=== PATIENT | female | born 1995 | race African-American/Black ===

== ENCOUNTER → 2017-12-13 13:26 | Outpatient (CLI) | payer OTHER, SELFPAY ==
[2017-12-13 13:53] LABS: Add Manual Diff / Slide Review NO; Basophils Percent Auto 1.4 % (0-2); Eosinophils Percent Auto 10.4 % (2-4); Hematocrit 41.9 % (36-46); Hemoglobin 14.1 g/dL (12.0-16.0); Mean Corpuscular HGB Conc 33.6 % (30-36); Mean Corpuscular Volume 80.3 fL (80-100); Neutrophils Absolute Auto 3300 /uL (3000-5900); Neutrophils Percent Auto 40.2 % (50-75); Platelet Count 260 X10^3/uL (150-400); Red Blood Cell Count 5.22 X10^6/uL (4.0-5.2); Red Cell Distribution Width 13.5 % (11.6-14.8); White Blood Cell Count 8.3 X10^3/uL (4.5-11.0)
[2017-12-13 14:04] LABS: Appearance Urine UA CLEAR; Bilirubin Urine UA NEGATIVE (NEGATIVE); Color Urine UA YELLOW; Glucose Urine UA NEGATIVE (Normal); Ketones Urine UA NEGATIVE (NEGATIVE); Leukocyte Esterase Urine UA NEGATIVE (NEGATIVE); Nitrite Urine UA Negative (Negative); Occult Blood Urine UA NEGATIVE (Negative); Protein Urine UA NEGATIVE (Negative); Urobilinogen Urine UA 0.2 E.U./dL (0.2); pH Urine UA 7.5 (4.5-8.0)
[2017-12-13 15:04] LABS: TSH w/ Reflex to FT4 2.05 uIU/mL (0.47-4.68)
[2017-12-13 16:37] LABS: Hepatitis B Surface Antigen NEGATIVE s/c (NEGATIVE); Rubella Antibody IgG 65.1 IU/mL (>15)
[2017-12-13 16:41] LABS: HIV 1 and 2 Antibody NEGATIVE (NEGATIVE); Hep C Virus Ab w/Reflex Quant NEGATIVE s/c (NEGATIVE)
[2017-12-15 14:40] LABS: HSV 2 IGG AB < 0.90 index (< 0.90)
[2017-12-20 09:12] LABS: Rapid Plasma Reagin NON REACTIVE
== END ==
PROVIDERS: Visit Provider Family Medicine
DX: Z34.01 Encounter for supervision of normal first pregnancy, first trimester (principal); Z3A.01 Less than 8 weeks gestation of pregnancy; E07.9 Disorder of thyroid, unspecified; O99.280 Endocrine, nutritional and metabolic diseases complicating pregnancy, unspecified trimester
CPT/HCPCS: 36415; 80055; 81003; 84443; 86695; 86696; 86703; 86787; 86803; 86850; 86900; 86901; 87086

== ENCOUNTER → 2018-02-07 10:50 | Outpatient (CLI) | payer OTHER, SELFPAY ==
[2018-02-07 12:35] LABS: Thyroid Stimulating Hormone 2.52 uIU/mL (0.47-4.68)
[2018-02-11 10:20] LABS: AFP, Serum 75.9 ng/mL; Cigarette Smoker N; Donated Egg NOT GIVEN; Donor Egg Age NOT GIVEN; Estriol, Free 1.21 ng/mL; Inhibin A, Dimeric 63 pg/mL; Maternal Ethnicity NOT GIVEN; Maternal Weight 139 lbs; Number of Fetuses NOT GIVEN; Previous Pregnancy Down Syndro NOT GIVEN; hCG, MoM 0.28; hCG, Serum 7.2 IU/mL
== END ==
PROVIDERS: Visit Provider Family Medicine
DX: E03.9 Hypothyroidism, unspecified (principal); Z34.02 Encounter for supervision of normal first pregnancy, second trimester; Z3A.18 18 weeks gestation of pregnancy
CPT/HCPCS: 36415; 82105; 82677; 84443; 84702; 86336

== ENCOUNTER → 2018-02-25 07:36 | Outpatient (CLI) | payer OTHER, SELFPAY ==
--- NOTE | 2018-02-25 07:38 | DI.US.S_ITS ---
PROCEDURE: US OB >= 14 WEEKS FETUS INDICATIONS: ANATOMIC SURVEY OUTSIDE/PRIOR DATING DATA: Last menstrual period (LMP): 10/04/17. LMP-based estimated date of delivery (GONSALO): 07/11/18. First dating scan (date and location): 02/25/18. Estimated date of delivery (GONSALO) from first dating scan: 07/12/18. TECHNIQUE: Real-time scanning was performed of the fetus, with image documentation and biometric measurements. Endovaginal scanning: No COMPARISON: [facility], , OB <= 14 WEEKS FETUS, 12/13/2017, 14:56. FINDINGS: General: A single living intrauterine gestation is present. Presentation: Vertex. Placenta: Placental position is posterior, without previa. Amniotic fluid index: 15.9 cm, normal range is 5-24 cm. heart rate: 141 beats per minute. Maternal cervical canal: 3.6 cm long. Normal lower limit is 2.5 cm. biometrics: Biparietal diameter: 21 weeks 1 day Head circumference: 20 weeks 6 days Abdominal circumference: 19 weeks 5 days Femur length: 19 weeks 6 days Estimated gestational age from initial scan: not applicable. Composite gestational age from present scan: 20 weeks 3 days Estimated weight and percentile: 321 g; 60 percentile Measurement variability for biometric dating: +/- 7 days from 14 weeks to 15 weeks 6 days gestation, +/- 10 days from 16 weeks to 21 weeks 6 days gestation, +/- 2 weeks from 22 weeks to 27 weeks 6 days gestation, +/- 3 weeks for 28 weeks gestation or later. weight reference: 4500 g or EFW >90/95% is considered macrosomia or large for gestational age. EFW <10% is small for gestational age. EFW 5% or less is considered intra-uterine growth restriction. Anatomic survey: Neuro: Ventricles are non-dilated at less than 10 mm. Cisterna magna is normal at 3-11 mm. Cerebellum is normal in size and morphology. Nuchal skin fold: Normal at less than 6 mm between 14-21 weeks gestational age. Face: Nose and lips, facial profile are normal. Spine: No evidence for spina bifida. Heart: 4-chambered heart is present, with normal ventricular outflow tracts. Diaphragm: Diaphragm is intact. Stomach: Left-sided stomach is present. Kidneys: No hydronephrosis. Normal is less than 5 mm in 2nd trimester, less than 7 mm in 3rd trimester. Cord: 3-vessel cord has orthotopic insertion. Bladder: Normal in size. Extremities: All 4 extremities identified. Maternal anterior uterine fibroid measuring 2.4 x 1.5 x 2.0 cm. IMPRESSION: 1. Single living IUP with mean composite gestational age of 20 weeks 3 days. 2. face not well visualized otherwise normal anatomy. 3. Maternal anterior uterine fibroid measuring 2.4 cm. Dictated by: Talon Turk [facility] Interpreted: Nadeem Li MD on 02/25/2018 at 10:34 Approved by: Nadeem Li M.D. on 02/25/2018 at 11:08
== END ==
PROVIDERS: Visit Provider Family Medicine
DX: Z36.89 Encounter for other specified antenatal screening (principal); Z3A.20 20 weeks gestation of pregnancy; O34.12 Maternal care for benign tumor of corpus uteri, second trimester; D25.9 Leiomyoma of uterus, unspecified
CPT/HCPCS: 76811

== ENCOUNTER 2018-09-22 06:34 | Day surgery (SDC) | payer OTHER, SELFPAY ==
[2018-09-13 14:40] VITALS: BMI 23.3
[2018-09-22] VITALS (8 sets, daily range): BP systolic 119–144; BP diastolic 85–101; PULSE 69–87; RESP 10–16; TEMP 35.7–36.5; O2SAT 96–100; BMI 23.3
[2018-09-22] MEDS: LACTATED RINGERS 1,000 ML 42 ML IV (07:25)
--- NOTE | 2018-09-22 07:50 | PM.PREOP ---
Pre-operative Note Interval Note History & Physical reviewed/Exam performed by Physician: Yes Changes to H&P: No
--- NOTE | 2018-09-22 07:51 | PM.HP.1 ---
History of Present Illness Date Patient Seen: 09/22/18 Time Patient Seen: 07:51 Chief complaint: [id number] PELVIC Narrative: Patient is a 23-year-old 1 para 1 with granulation tissue at a previous obstetrical laceration site, and an unhealed third-degree laceration Patient History Medical History (Updated 09/13/18 @ 14:50 by Yenny Johnson RN) Third degree perineal laceration during delivery (Acute 07/26/18) Vaginal delivery (Acute 07/26/18) Hypothyroidism (Acute) Social History marital status: household members: spouse and children Smoking Status: Never smoker alcohol intake: never substance use type: does not use Family & Social History Social History: household members spouse,children Tobacco & Substance use: Smoking Status Never smoker alcohol intake never Substance Use Type does not use Meds Home Medications Medication Instructions Recorded Confirmed Type 1 tab PO DAILY 12/13/17 09/22/18 History vitamin,calcium,juahssvi-bqba-gsrzk acid tablet levothyroxine 25 mcg capsule 25 mcg PO DAILY #30 cap 01/20/18 09/22/18 Rx triamcinolone acetonide 0.1 % See Rx Instructions TOP BID #30 03/18/18 09/22/18 Rx topical cream gram fluoxetine 20 mg capsule 20 mg PO DAILY #30 cap 04/06/18 09/22/18 Rx fluticasone 250 mcg-salmeterol 50 1 inhalation INHALATION BID #60 04/06/18 09/22/18 Rx mcg/dose blistr powdr for each inhalation estradiol 0.01% (0.1 mg/gram) 0.3 gram VAG DAILY #42.5 gram 09/07/18 09/22/18 Rx vaginal cream Allergies Allergy/AdvReac Type Severity Reaction Status Date / Time shellfish derived Allergy Severe Lip Verified 09/22/18 07:16 Swelling Exam Vital Signs (past 8 hours): - 09/22/18 07:18 Temperature 97.4 F L Pulse Rate 79 Respiratory Rate 15 Blood Pressure 122/86 Pulse Oximetry 96 Oxygen Delivery Method Room Air Narrative Exam Narrative: HEENT: No thyromegaly, no anterior cervical or supraclavicular lymphadenopathy. Lungs:Clear to auscultation bilaterally, no wheezes. Cardiovascular: Regular rate and rhythm, no murmurs, rubs, or gallops. Abdomen: No scars. No hepatosplenomegaly. No masses palpable. External genitalia: Unrepaired third-degree laceration Vagina: Normal Cervix: Normal Bimanual exam: [ Week size uterus. Mobile.] Rectal: No masses. Assessment & Plan Assessment & Plan narrative: Assessment: 23-year-old 1 para 1 with granulation tissue at a third-degree laceration site Non healed third-degree laceration Plan: Repair of third-degree laceration and excision of granulation tissue The risks, benefits, and alternatives to the procedure were explained to the patient. The risks including bleeding and infection. She understands these risks and agrees to proceed. A full par Q was held and consent form was signed
[2018-09-22] MEDS: CEFAZOLIN 2 GM/100 ML FROZ.PIGGY IV (08:10)
--- NOTE | 2018-09-22 08:16 | SUR.OPER ---
Lithotomy on padded OR bed, head on pillow, arms secured on padded arm boards at <90 degrees abduction. Legs secured in padded yellow fins stirrups.
[2018-09-22] MEDS: fentaNYL 100 MCG/2 ML INJ 50 MCG IV ×2 (09:05→09:13)
--- NOTE | 2018-09-22 09:38 | SUR.PHASEII ---
PT UP TO BATHROOM WITH ASSISTANCE, GAIT STEADY, PT ABLE TO VOID, CLEAN MICHAEL PAD AND PANITES GIVEN FOR SMALL AMT BLOODY DRAINAGE.
[2018-09-22] MEDS: OXYCODONE/ACETAMINOPHEN 5/325 TABLET 1 TAB PO ×2 (09:42→10:00)
--- NOTE | 2018-09-22 09:43 | SUR.PHASEII ---
PT TOLERATING CRACKERS AND JUICE
--- NOTE | 2018-09-24 00:59 | PM.GYNOP.1 ---
Operative Date/Time/Diagnoses Date of procedure: 09/23/18 Time of procedure: 08:45 Pre-op diagnosis: Granulation tissue at obstetrical laceration site Unhealed third-degree laceration repair Post-op diagnosis: same Procedure: Procedures Operation Date: 09/22/18 07:45 Actual Procedures Side Surgeon p Revision 3rd Degree Laceration Daisy Mason MD Indications: Granulation tissue at obstetrical laceration site Unhealed third-degree laceration repair Surgeon: Daisy Mason Anesthesia Type: General (LMA) Operative Notes Findings: A 0.5 x 0.5 cm hole between the vagina and the perineum Granulation tissue along the perineal body Granulation tissue in the vagina Closure Type: primary Specimen(s): none Estimated blood loss (mL): 10 Blood products transfused: none Procedure in detail: After informed consent was obtained, the patient was taken to the operating room where she was placed in the dorsal supine position. After adequate LMA general anesthesia was achieved, she was placed in the dorsal lithotomy position, and prepped and draped in the usual sterile fashion. A time-out was performed. 10 cc of 0.5% Marcaine with epinephrine were injected along the perineal body and on the vaginal mucosa. The granulation tissue was excised using a # 10 blade on the vaginal mucosa and extending down the perineal body. The fistulous tract between the vaginal mucosa and perineal body were excised as well. Two 0 Vicryl was used to reapproximate the vaginal mucosa to the mucocutaneous junction. Two 0 Vicryl was used to reapproximate the perineal body with deep sutures. Three 0 Vicryl was used to close the skin in a subcuticular fashion. Three 0 chromic approximately 3 sutures were used for retention sutures on the skin. Hemostasis was achieved. A rectal exam was performed and there were no sutures or fistulas into the rectum. Sponge, lap, and instrument counts were correct x2. The patient tolerated the procedure well, and was taken to PACU in stable condition. Complications: none Post-operative Condition: stable Disposition: PACU Plan for aftercare: Home after recovery
== END 2018-09-22 10:24 | disposition home or self-care (01) ==
PROVIDERS: Visit Provider Obstetrics & Gynecology
PROC: (CPT 59300; principal; 2018-09-22 07:45)
DX: O70.20 Third degree perineal laceration during delivery, unspecified (principal); Z87.59 Personal history of other complications of pregnancy, childbirth and the puerperium; E03.9 Hypothyroidism, unspecified
CPT/HCPCS: 11420; 12041 ×2; J0690; J1885; J2405; J2704; J3010

== ENCOUNTER → 2019-01-20 10:50 | Outpatient (CLI) | payer OTHER, SELFPAY ==
--- NOTE | 2019-01-20 10:52 | DI.RAD.S_ITS ---
PROCEDURE: XR HAND RT MIN 3V INDICATIONS: Morning stiffness, joints of both hands TECHNIQUE: 3 views of the hand(s) acquired. COMPARISON: [facility], CR, XR HAND LT MIN 3V, 01/20/2019, 11:21. FINDINGS: Bones: No fractures or dislocations. Carpal bones are normally aligned. No suspicious bony lesions. No erosions. Soft tissues: No suspicious soft tissue calcifications. IMPRESSION: No visualized arthritic change. Dictated by: Marjorie Valle M.D. on 01/20/2019 at 16:11 Approved by: Marjorie Valle M.D. on 01/20/2019 at 16:11
--- NOTE | 2019-01-20 10:52 | DI.RAD.S_ITS ---
PROCEDURE: XR HAND LT MIN 3V INDICATIONS: Morning stiffness, joints of both hands TECHNIQUE: 3 views of the hand(s) acquired. COMPARISON: [facility], CR, XR HAND RT MIN 3V, 01/20/2019, 11:21. FINDINGS: Bones: No fractures or dislocations. Carpal bones are normally aligned. No suspicious bony lesions. No visualized joint space narrowing. No erosions. Soft tissues: No suspicious soft tissue calcifications. IMPRESSION: No visualized arthritic change. Dictated by: Marjorie Valle M.D. on 01/20/2019 at 16:11 Approved by: Marjorie Valle M.D. on 01/20/2019 at 16:11
[2019-01-20 12:37] LABS: Hematocrit 43.8 % (36-46); Hemoglobin 14.3 g/dL (12.0-16.0); Mean Corpuscular HGB Conc 32.5 % (30-36); Mean Corpuscular Hemoglobin 26.8 PG (26-34); Mean Corpuscular Volume 82.4 fL (80-100); Platelet Count 280 X10^3/uL (150-400); Red Blood Cell Count 5.32 X10^6/uL (4.0-5.2); Red Cell Distribution Width 13.2 % (11.6-14.8)
[2019-01-20 13:07] LABS: Erythrocyte Sedimentation Rate 6 MM/HR (0-20)
[2019-01-20 13:31] LABS: Alanine Aminotransferase 24 IU/L (<35); Albumin 4.8 g/dL (3.5-5.0); Albumin Globulin Ratio 1.6 (1.0-2.8); Alkaline Phosphatase 150 U/L (38-126); Aspartate Aminotransferase 25 IU/L (14-36); BUN Creatinine Ratio 11.4 (6-22); Bilirubin Total 0.4 mg/dL (0.2-1.3); Blood Urea Nitrogen 8 mg/dL (7-17); Calcium 10.4 mg/dL (8.4-10.2); Carbon Dioxide 28 mmol/L (22-32); Chloride 100 mmol/L (98-107); Estimated Glomerular Filt Rate > 60.0 mL/min (>60); Glucose 74 mg/dL (70-100); HEMOLYSIS < 15 (0-50); Potassium 4.2 mmol/L (3.4-5.1); Sodium 140 mmol/L (137-145); Total Protein 7.8 g/dL (6.3-8.2)
[2019-01-20 14:00] LABS: Thyroid Stimulating Hormone 1.44 uIU/mL (0.47-4.68)
== END ==
PROVIDERS: Visit Provider Nurse Practitioner Family
DX: Z00.00 Encounter for general adult medical examination without abnormal findings (principal); M25.641 Stiffness of right hand, not elsewhere classified; M25.642 Stiffness of left hand, not elsewhere classified; E03.9 Hypothyroidism, unspecified
CPT/HCPCS: 36415; 73130; 80053; 84443; 85027; 85651

== ENCOUNTER → 2019-01-27 09:15 | Outpatient (CLI) | payer OTHER, SELFPAY ==
[2019-02-03 07:10] LABS: Calcium 9.8 mg/dL (8.6-10.2); Parathyroid Hormone, Intact 34 pg/mL (14-64)
== END ==
PROVIDERS: Visit Provider Nurse Practitioner Family
DX: E83.52 Hypercalcemia (principal)
CPT/HCPCS: 36415; 83970

== ENCOUNTER → 2019-12-01 09:29 | Outpatient (CLI) | payer OTHER, SELFPAY ==
[2019-12-01 10:19] LABS: Hematocrit 41.2 % (36-46); Hemoglobin 13.6 g/dL (12.0-16.0); Mean Corpuscular HGB Conc 33.1 % (30-36); Mean Corpuscular Hemoglobin 27.1 PG (26-34); Mean Corpuscular Volume 81.9 fL (80-100); Platelet Count 224 X10^3/uL (150-400); Red Blood Cell Count 5.03 X10^6/uL (4.0-5.2); Red Cell Distribution Width 12.8 % (11.6-14.8); White Blood Cell Count 6.5 X10^3/uL (4.5-11.0)
[2019-12-01 10:51] LABS: Alanine Aminotransferase 16 IU/L (<35); Albumin Globulin Ratio 1.3 (1.0-2.8); Alkaline Phosphatase 138 U/L (38-126); Aspartate Aminotransferase 20 IU/L (14-36); BUN Creatinine Ratio 12.9 (6-22); Bilirubin Total 0.2 mg/dL (0.2-1.3); Blood Urea Nitrogen 9 mg/dL (7-17); Calcium 9.4 mg/dL (8.4-10.2); Carbon Dioxide 26 mmol/L (22-32); Chloride 104 mmol/L (98-107); Estimated Glomerular Filt Rate > 60.0 mL/min (>60); Globulin 3.1 g/dL (1.7-4.1); Glucose 80 mg/dL (70-100); HEMOLYSIS < 15 (0-50); Potassium 4.6 mmol/L (3.4-5.1); Sodium 138 mmol/L (137-145); Total Protein 7.1 g/dL (6.3-8.2)
[2019-12-01 11:19] LABS: Thyroid Stimulating Hormone 1.87 uIU/mL (0.47-4.68)
== END ==
PROVIDERS: PCP Nurse Practitioner Family; Referring Provider Nurse Practitioner Family; Visit Provider Nurse Practitioner Family
DX: Z00.00 Encounter for general adult medical examination without abnormal findings (principal); E03.9 Hypothyroidism, unspecified
CPT/HCPCS: 36415; 80053; 84443; 85027

== ENCOUNTER 2019-12-14 17:26 | Emergency (ER) | payer OTHER, SELFPAY ==
[2019-12-14 17:30] VITALS: BP 118/67; PULSE 88; RESP 16; TEMP 36.8; O2SAT 100; BMI 25.7
--- NOTE | 2019-12-14 18:19 | DI.RAD.S_ITS ---
PROCEDURE: XR CHEST 2V INDICATIONS: short of breath TECHNIQUE: 2 views of the chest were acquired. COMPARISON: None. FINDINGS: Surgical changes and devices: None. Lungs and pleura: Lungs are clear. No pleural effusions or pneumothorax. Mediastinum: Mediastinal contours are normal. Heart size is normal. Bones and chest wall: No suspicious bony abnormalities. Soft tissues appear unremarkable. IMPRESSION: No acute cardiopulmonary pathology. Dictated by: Nadeem Li M.D. on 12/14/2019 at 17:43 Approved by: Nadeem Li M.D. on 12/14/2019 at 17:43
[2019-12-14 19:28] LABS: COVID19 -Nasal RAPID Negative (Negative)
[2019-12-14] MEDS: SODIUM CHLORIDE 0.9% 1,000 ML 1000 ML IV (19:46)
[2019-12-14] MEDS: KETOROLAC 60 MG/2 ML VIAL 30 MG IV (19:46)
[2019-12-14] MEDS: ONDANSETRON 4 MG/2 ML INJ IV (19:46)
[2019-12-14 19:50] LABS: Add Manual Diff / Slide Review NO; Basophils Absolute Auto 100 /uL (0-100); Basophils Percent Auto 0.7 % (0-2); Eosinophils Absolute Auto 400 /uL (0-450); Eosinophils Percent Auto 4.5 % (2-4); Hematocrit 42.2 % (36-46); Hemoglobin 14.1 g/dL (12.0-16.0); Lymphocytes Absolute Auto 4400 /uL (1100-4500); Lymphocytes Percent Auto 52.4 % (25-40); Mean Corpuscular HGB Conc 33.3 % (30-36); Mean Corpuscular Hemoglobin 27.3 PG (26-34); Monocytes Absolute Auto 500 /uL (0-900); Monocytes Percent Auto 6.5 % (3-14); Neutrophils Absolute Auto 3000 /uL (1500-7000); Neutrophils Percent Auto 35.9 % (50-75); Platelet Count 223 X10^3/uL (150-400); Red Blood Cell Count 5.15 X10^6/uL (4.0-5.2); Red Cell Distribution Width 12.7 % (11.6-14.8); White Blood Cell Count 8.4 X10^3/uL (4.5-11.0)
[2019-12-14 20:09] VITALS: PULSE 86; RESP 18; O2SAT 99
[2019-12-14 20:09] LABS: Lactate (Lactic Acid) 1.2 mmol/L (0.7-2.1)
[2019-12-14] MEDS: methylPREDNISolone 125 MG/2 ML VIAL IV (20:09)
[2019-12-14 20:10] LABS: Alanine Aminotransferase 18 IU/L (<35); Albumin Globulin Ratio 1.3 (1.0-2.8); Alkaline Phosphatase 146 U/L (38-126); Aspartate Aminotransferase 26 IU/L (14-36); BUN Creatinine Ratio 14.7 (6-22); Bilirubin Total 0.2 mg/dL (0.2-1.3); Blood Urea Nitrogen 10 mg/dL (7-17); Carbon Dioxide 26 mmol/L (22-32); Chloride 103 mmol/L (98-107); Estimated Glomerular Filt Rate > 60.0 mL/min (>60); Globulin 3.1 g/dL (1.7-4.1); Glucose 85 mg/dL (70-100); HEMOLYSIS 42 (0-50); Potassium 3.9 mmol/L (3.4-5.1); Sodium 136 mmol/L (137-145); Total Protein 7.1 g/dL (6.3-8.2)
[2019-12-14] MEDS: ALBUTEROL 2.5 MG/3 ML NEB (ADULT) 5 MG INH (20:10)
[2019-12-14] MEDS: ALBUTEROL/IPRATROPIUM 3 ML AMPUL INH ×4 (20:11→21:12)
[2019-12-14 20:24] LABS: Procalcitonin < 0.05 ng/mL (<0.5)
[2019-12-14 21:22] VITALS: BP 117/74; PULSE 102; RESP 18; O2SAT 99
--- NOTE | 2019-12-14 21:22 | ED_ITS ---
HPI - SOB/Dyspnea <WENDIE Lee - Last Filed: 12/14/19 21:27> General Chief Complaint: Shortness of Breath/Dyspnea Stated Complaint: SHORT OF BREATH, HEADACHE Time Seen by Provider: 12/14/19 18:57 Source: patient Mode of arrival: Ambulatory Limitations: no limitations History of Present Illness HPI Narrative: The patient is a 24-year-old female nonsmoker with history of asthma who presents with a chief complaint of shortness of breath that started earlier today. She has tried her inhaler, but does not use a spacer. She is out of ?nebulizer medicine,though notes that she does have a nebulizer machine at home. She denies any fevers, abdominal pain nausea vomiting or diarrhea. She does complain of headache. She denies possibility of . She denies any productive cough, states as though she feels like her chest is very ?tight.She states she using her preventative medication as instructed. Related Data Home Medications Medication Instructions Recorded Confirmed albuterol sulfate 90 mcg/actuation 2 puff INHALATION Q4-6H PRN 11/29/19 11/29/19 aerosol inhaler Previous Rx's Medication Instructions Recorded fluticasone 250 mcg-salmeterol 50 1 inhalation INHALATION BID #60 01/17/19 mcg/dose blistr powdr for each inhalation levothyroxine 25 mcg tablet 25 mcg PO DAILY #90 tab 07/07/19 paroxetine HCl 10 mg tablet 10 mg PO DAILY #60 tab 11/29/19 albuterol sulfate 2 puff INHALATION Q4-6H PRN #18 12/14/19 gram ipratropium-albuterol 3 ml INHALATION Q4-6H PRN #15 ml 12/14/19 prednisone 40 mg PO DAILY #10 tab 12/14/19 Allergies Allergy/AdvReac Type Severity Reaction Status Date / Time shellfish derived Allergy Severe Lip Verified 12/14/19 17:45 Swelling oxycodone AdvReac Mild Rash/Itchin Verified 12/14/19 17:45 g Review of Systems <WENDIE Lee - Last Filed: 12/14/19 21:27> Review of Systems Narrative: GENERAL: Denies chills, fatigue, malaise, fever, sweats. HEENT: Denies sinus pain, ear pain, sore throat, difficulty swallowing, dizziness. RESPIRATORY: See HPI CARDIOVASCULAR: Denies chest pain, palpitations, orthopnea, edema, GASTROINTESTINAL: Denies nausea, vomiting, abdominal pain, diarrhea, constipation, melena. : Denies dysuria, frequency, incontinence, hematuria, urinary retention. MUSCULOSKELETAL: denies weakness, joint pain, or bony pain SKIN: Denies rash, skin lesions, or other NEUROLOGIC: See HPI PSYCHIATRIC: No concerning psychosocial issues. 12 point review of systems is negative except for those stated above Patient History <WENDIE Lee - Last Filed: 12/14/19 21:27> Medical History Asthma (Acute) Elevated alkaline phosphatase level (Acute) Hypothyroidism (Acute 2011) Pelvic floor dysfunction in female (Acute) Pelvic floor tension (Acute) Third degree perineal laceration during delivery (Acute 07/26/18) Vaginal delivery (Acute 07/26/18) Surgical History Status post surgery (Resolved) Social History marital status: household members: spouse and children Smoking Status: Never smoker second hand exposure: No alcohol intake: never substance use type: does not use Smoking Status: Never smoker alcohol intake frequency: holidays/special occasions only Substance Use Type: does not use Exam <WENDIE Lee - Last Filed: 12/14/19 21:27> Narrative Exam Narrative: GENERAL: This is a well-nourished, well-developed patient, no acute distress HEAD: Atraumatic. Normocephalic. No temporal or scalp tenderness. EYES: Pupils equal round and reactive. Extraocular motions intact. No scleral icterus. No injection or drainage. ENT: Nose without bleeding, purulent drainage or septal hematoma. Throat without erythema, tonsillar hypertrophy or exudate. Uvula midline. Airway patent. NECK: Trachea midline. No JVD or lymphadenopathy. Supple, nontender, no meni ngeal signs. CARDIOVASCULAR: Regular rate and rhythm RESPIRATORY: Diminished bilaterally to auscultation. Breath sounds equal bilaterally. No wheezes, rales, or rhonchi. No increased respiratory effort. Speaking full sentences. No accessory muscle use., laying back on stretcher GASTROINTESTINAL: Abdomen soft, non-tender, nondistended. No hepato- splenomegaly, or palpable masses. No guarding. EXTREMITIES: No clubbing, cyanosis, or edema. No joint tenderness, effusion, or edema noted. BACK: Nontender without deformity or crepitance. No flank tenderness. NEURO: AOx3. Stable gait. Using all extremities equally. SKIN: No rash or erythema on visible skin. Initial Vital Signs Initial Vital Signs: Vital Signs Temperature 98.2 F 12/14/19 17:30 Pulse Rate 88 12/14/19 17:30 Respiratory Rate 16 12/14/19 17:30 Blood Pressure 118/67 12/14/19 17:30 Pulse Oximetry 100 12/14/19 17:30 <Javon Morris DO - Last Filed: 12/15/19 01:16> Initial Vital Signs Initial Vital Signs: Vital Signs Temperature 98.2 F 12/14/19 17:30 Pulse Rate 88 12/14/19 17:30 Respiratory Rate 16 12/14/19 17:30 Blood Pressure 118/67 12/14/19 17:30 Pulse Oximetry 100 12/14/19 17:30 Scores <WENDIE Lee - Last Filed: 12/14/19 21:27> GCS [place] coma scale eye opening: Spontaneous Valeriano coma scale verbal response: Orientated [place] coma scale motor response: Obey commands [place] coma scale total score: 15 PERC Score Age greater than or equal to 50 years: No Heart rate greater than or equal to 100 bpm: No Room Air O2 Sat less than 95%: No Unilateral leg swelling: No Recent trauma or surgery: No Hemoptysis: No Prior PE or DVT: No Hormone Use: No Total PERC Score: 0 Wells' Criteria for PE Clinical signs and symptoms of DVT: No PE is #1 Dx or equally likely: No Heart rate > 100: No Immobilization at least 3 days or surg in previous 4 weeks: No History of PE or DVT: No Hemoptysis: No Malignancy w/Treatment within 6 months or palliative: No Wells' PE Score total: 0 Course <WENDIE Lee - Last Filed: 12/14/19 21:27> Orders Ordered: ED Orders 12/14/19 18:19 XR chest 2V Stat EKG-12 Lead Stat 12/14/19 19:02 COVID19 -ED/INPAT/OR/L&D Stat 12/14/19 19:38 RT Consult Eval and Treat NOW 12/14/19 19:40 Complete Blood Count AUTO DIFF Stat Comprehensive Metabolic Panel Stat Lactate (Lactic Acid) Stat Procalcitonin Stat Discontinued Medications Albuterol (Ventolin) 5 mg INH NOW ONE Stop: 12/14/19 20:08 Last Admin: 12/14/19 20:10 Dose: 5 mg Documented by: ABRAHAM Albuterol/Ipratropium (Duoneb) 3 ml INH NOW ONE Stop: 12/14/19 20:09 Last Admin: 12/14/19 20:11 Dose: 3 ml Documented by: ABRAHAM Albuterol/Ipratropium (Duoneb) 3 ml INH NOW ONE Stop: 12/14/19 21:04 Last Admin: 12/14/19 21:11 Dose: 3 ml Documented by: PAVITHRA Albuterol/Ipratropium (Duoneb) 3 ml INH NOW ONE Stop: 12/14/19 21:05 Last Admin: 12/14/19 21:11 Dose: 3 ml Documented by: PAVITHRA Albuterol/Ipratropium (Duoneb) 3 ml INH NOW ONE Stop: 12/14/19 21:05 Last Admin: 12/14/19 21:12 Dose: 3 ml Documented by: PAVITHRA Sodium Chloride (Normal Saline 0.9%) 1,000 mls @ 1,000 mls/hr IV BOLUS ONE Stop: 12/14/19 20:21 Last Infusion: 12/14/19 20:46 Dose: 0 mls/hr Documented by: Admin: 12/14/19 19:46 Dose: 1,000 mls/hr Documented by: PAVITHRA Ketorolac Tromethamine (Toradol) 30 mg IV NOW ONE Stop: 12/14/19 19:23 Last Admin: 12/14/19 19:46 Dose: 30 mg Documented by: PAVITHRA Methylprednisolone (Solu-Medrol 125 Mg Vial) 125 mg IV NOW ONE Stop: 12/14/19 20:06 Last Admin: 12/14/19 20:09 Dose: 125 mg Documented by: PAVITHRA Ondansetron HCl (Zofran) 4 mg IV NOW ONE Stop: 12/14/19 19:23 Last Admin: 12/14/19 19:46 Dose: 4 mg Documented by: PAVITHRA Vital Signs Vital signs: Vital Signs - 8 hr 12/14/19 17:30 12/14/19 20:09 12/14/19 21:22 Temperature 98.2 F Pulse Rate 88 86 102 H Respiratory Rate 16 18 18 Blood Pressure 118/67 117/74 Pulse Oximetry 100 99 99 <Javon Morris, - Last Filed: 12/15/19 01:16> Orders Ordered: ED Orders 12/14/19 18:19 XR chest 2V Stat EKG-12 Lead Stat 12/14/19 19:02 COVID19 -ED/INPAT/OR/L&D Stat 12/14/19 19:38 RT Consult Eval and Treat NOW 12/14/19 19:40 Complete Blood Count AUTO DIFF Stat Comprehensive Metabolic Panel Stat Lactate (Lactic Acid) Stat Procalcitonin Stat Discontinued Medications Albuterol (Ventolin) 5 mg INH NOW ONE Stop: 12/14/19 20:08 Last Admin: 12/14/19 20:10 Dose: 5 mg Documented by: ABRAHAM Albuterol/Ipratropium (Duoneb) 3 ml INH NOW ONE Stop: 12/14/19 20:09 Last Admin: 12/14/19 20:11 Dose: 3 ml Documented by: ABRAHAM Albuterol/Ipratropium (Duoneb) 3 ml INH NOW ONE Stop: 12/14/19 21:04 Last Admin: 12/14/19 21:11 Dose: 3 ml Documented by: PAVITHRA Albuterol/Ipratropium (Duoneb) 3 ml INH NOW ONE Stop: 12/14/19 21:05 Last Admin: 12/14/19 21:11 Dose: 3 ml Documented by: PAVITHRA Albuterol/Ipratropium (Duoneb) 3 ml INH NOW ONE Stop: 12/14/19 21:05 Last Admin: 12/14/19 21:12 Dose: 3 ml Documented by: PAVITHRA Sodium Chloride (Normal Saline 0.9%) 1,000 mls @ 1,000 mls/hr IV BOLUS ONE Stop: 12/14/19 20:21 Last Infusion: 12/14/19 20:46 Dose: 0 mls/hr Documented by: Admin: 12/14/19 19:46 Dose: 1,000 mls/hr Documented by: PAVITHRA Ketorolac Tromethamine (Toradol) 30 mg IV NOW ONE Stop: 12/14/19 19:23 Last Admin: 12/14/19 19:46 Dose: 30 mg Documented by: PAVITHRA Methylprednisolone (Solu-Medrol 125 Mg Vial) 125 mg IV NOW ONE Stop: 12/14/19 20:06 Last Admin: 12/14/19 20:09 Dose: 125 mg Documented by: PAVITHRA Ondansetron HCl (Zofran) 4 mg IV NOW ONE Stop: 12/14/19 19:23 Last Admin: 12/14/19 19:46 Dose: 4 mg Documented by: PAVITHRA Vital Signs Vital signs: Vital Signs - 8 hr 12/14/19 17:30 12/14/19 20:09 12/14/19 21:22 Temperature 98.2 F Pulse Rate 88 86 102 H Respiratory Rate 16 18 18 Blood Pressure 118/67 117/74 Pulse Oximetry 100 99 99 MDM - SOB/Dyspnea <WENDIE Lee - Last Filed: 12/14/19 21:27> Lab Data Attestation: I reviewed the patient's lab results. Result diagrams: 12/14/19 19:40 12/14/19 19:40 Labs: Lab Results 12/14/19 12/14/19 12/14/19 Range/Units 19:02 19:40 19:40 WBC 8.4 (4.5-11.0) X10^3/uL RBC 5.15 (4.0-5.2) X10^6/uL Hgb 14.1 (12.0-16.0) g/dL Hct 42.2 (36-46) % MCV 82.0 (80-100) fL MCH 27.3 (26-34) PG MCHC 33.3 (30-36) % RDW 12.7 (11.6-14.8) % Plt Count 223 (150-400) X10^3/uL Neut % (Auto) 35.9 L (50-75) % Lymph % (Auto) 52.4 H (25-40) % [place] % (Auto) 6.5 (3-14) % Eos % (Auto) 4.5 H (2-4) % Baso % (Auto) 0.7 (0-2) % Neut # (Auto) 3000 (3812-6066) /uL Lymph # (Auto) 4400 (1520-9975) /uL [place] # (Auto) 500 (0-900) /uL Eos # (Auto) 400 (0-450) /uL Baso # (Auto) 100 (0-100) /uL Sodium (137-145) mmol/L Potassium (3.4-5.1) mmol/L Chloride (98-107) mmol/L Carbon Dioxide (22-32) mmol/L BUN (7-17) mg/dL Creatinine (0.52-1.04) mg/dL Estimated GFR (>60) mL/min BUN/Creatinine Ratio (6-22) Glucose (70-100) mg/dL Lactate (0.7-2.1) mmol/L Calcium (8.4-10.2) mg/dL Total Bilirubin (0.2-1.3) mg/dL AST (14-36) IU/L ALT (<35) IU/L Alkaline Phosphatase (38-126) U/L Total Protein (6.3-8.2) g/dL Albumin (3.5-5.0) g/dL Globulin (1.7-4.1) g/dL Albumin/Globulin Ratio (1.0-2.8) Procalcitonin < 0.05 (<0.5) ng/mL COVID-19 PCR Negative (Negative) 12/14/19 12/14/19 Range/Units 19:40 19:40 WBC (4.5-11.0) X10^3/uL RBC (4.0-5.2) X10^6/uL Hgb (12.0-16.0) g/dL Hct (36-46) % MCV (80-100) fL MCH (26-34) PG MCHC (30-36) % RDW (11.6-14.8) % Plt Count (150-400) X10^3/uL Neut % (Auto) (50-75) % Lymph % (Auto) (25-40) % [place] % (Auto) (3-14) % Eos % (Auto) (2-4) % Baso % (Auto) (0-2) % Neut # (Auto) (7010-6998) /uL Lymph # (Auto) (5374-2900) /uL [place] # (Auto) (0-900) /uL Eos # (Auto) (0-450) /uL Baso # (Auto) (0-100) /uL Sodium 136 L (137-145) mmol/L Potassium 3.9 (3.4-5.1) mmol/L Chloride 103 (98-107) mmol/L Carbon Dioxide 26 (22-32) mmol/L BUN 10 (7-17) mg/dL Creatinine 0.68 (0.52-1.04) mg/dL Estimated GFR > 60.0 (>60) mL/min BUN/Creatinine Ratio 14.7 (6-22) Glucose 85 (70-100) mg/dL Lactate 1.2 (0.7-2.1) mmol/L Calcium 9.0 (8.4-10.2) mg/dL Total Bilirubin 0.2 (0.2-1.3) mg/dL AST 26 (14-36) IU/L ALT 18 (<35) IU/L Alkaline Phosphatase 146 H (38-126) U/L Total Protein 7.1 (6.3-8.2) g/dL Albumin 4.0 (3.5-5.0) g/dL Globulin 3.1 (1.7-4.1) g/dL Albumin/Globulin Ratio 1.3 (1.0-2.8) Procalcitonin (<0.5) ng/mL COVID-19 PCR (Negative) Point of Care Testing Test Results Negative Urine Dip Bedside Urine Glucose Negative Bedside Urine Bilirubin - Negative Bedside Urine Ketone - Negative Urine Specific [place] 1.010 Bedside Urine Occult Blood - Negative Bedside Urine pH 7.5 Bedside Urine Protein - Negative Bedside Urine Urobilinogen - Negative Bedside Urine Nitrite - Negative Bedside Urine Leukocytes - Negative Esterase Imaging Data Chest x-ray: Radiologist's Impression: [address] [place] [id number] XRay Report Signed Patient: Antelmo Serra SMR#: [id number] : 1995Acct:[id number] Age/Sex: 24 / FDate of Service: 12/14/19 Loc: ED Accession Number: [id number] Procedure: XR chest 2V Ordering Provider: Yashira Mauro MD PROCEDURE: XR CHEST 2V INDICATIONS: short of breath TECHNIQUE: 2 views of the chest were acquired. COMPARISON: None. FINDINGS: Surgical changes and devices: None. Lungs and pleura: Lungs are clear. No pleural effusions or pneumothorax. Mediastinum: Mediastinal contours are normal. Heart size is normal. Bones and chest wall: No suspicious bony abnormalities. Soft tissues appear unremarkable. IMPRESSION: No acute cardiopulmonary pathology. Dictated by: Nadeem Li M.D. on 12/14/2019 at 17:43 Approved by: Nadeem Li M.D. on 12/14/2019 at 17:43 [facility] Narrative Medical decision making narrative: The patient is a 24-year-old female who presents with a chief complaint of shortness of breath. She has a history of asthma, is initially very tight on exam. She tests negative for coronavirus, chest x-ray is no acute findings, procalcitonin less than 0.05. She seen and evaluated by respiratory therapist, given multiple nebulizers and feels much i mproved with improved lung sounds. She was given prescriptions for duo nebulizers, albuterol inhaler, received spacer training and placed on a steroid burst. She feels much improved is requesting go home. I discussed at length rest coming to sober medications as needed and able and follow up with primary care provider in the next 48-72 hours for close re-evaluation. I did encourage her to come back to the emergency department for any acute concerns in the meantime such as significant shortness of breath. Patient has no questions or concerns upon discharge and states understanding return precautions as well as follow-up care. She appears well and nontoxic [facility] <Javon Morris, DO - Last Filed: 12/15/19 01:16> Lab Data Labs: Lab Results 12/14/19 12/14/19 12/14/19 Range/Units 19:02 19:40 19:40 WBC 8.4 (4.5-11.0) X10^3/uL RBC 5.15 (4.0-5.2) X10^6/uL Hgb 14.1 (12.0-16.0) g/dL Hct 42.2 (36-46) % MCV 82.0 (80-100) fL MCH 27.3 (26-34) PG MCHC 33.3 (30-36) % RDW 12.7 (11.6-14.8) % Plt Count 223 (150-400) X10^3/uL Neut % (Auto) 35.9 L (50-75) % Lymph % (Auto) 52.4 H (25-40) % [place] % (Auto) 6.5 (3-14) % Eos % (Auto) 4.5 H (2-4) % Baso % (Auto) 0.7 (0-2) % Neut # (Auto) 3000 (2515-9896) /uL Lymph # (Auto) 4400 (8910-1350) /uL [place] # (Auto) 500 (0-900) /uL Eos # (Auto) 400 (0-450) /uL Baso # (Auto) 100 (0-100) /uL Sodium (137-145) mmol/L Potassium (3.4-5.1) mmol/L Chloride (98-107) mmol/L Carbon Dioxide (22-32) mmol/L BUN (7-17) mg/dL Creatinine (0.52-1.04) mg/dL Estimated GFR (>60) mL/min BUN/Creatinine Ratio (6-22) Glucose (70-100) mg/dL Lactate (0.7-2.1) mmol/L Calcium (8.4-10.2) mg/dL Total Bilirubin (0.2-1.3) mg/dL AST (14-36) IU/L ALT (<35) IU/L Alkaline Phosphatase (38-126) U/L Total Protein (6.3-8.2) g/dL Albumin (3.5-5.0) g/dL Globulin (1.7-4.1) g/dL Albumin/Globulin Ratio (1.0-2.8) Procalcitonin < 0.05 (<0.5) ng/mL COVID-19 PCR Negative (Negative) 12/14/19 12/14/19 Range/Units 19:40 19:40 WBC (4.5-11.0) X10^3/uL RBC (4.0-5.2) X10^6/uL Hgb (12.0-16.0) g/dL Hct (36-46) % MCV (80-100) fL MCH (26-34) PG MCHC (30-36) % RDW (11.6-14.8) % Plt Count (150-400) X10^3/uL Neut % (Auto) (50-75) % Lymph % (Auto) (25-40) % [place] % (Auto) (3-14) % Eos % (Auto) (2-4) % Baso % (Auto) (0-2) % Neut # (Auto) (2051-3473) /uL Lymph # (Auto) (0196-6418) /uL [place] # (Auto) (0-900) /uL Eos # (Auto) (0-450) /uL Baso # (Auto) (0-100) /uL Sodium 136 L (137-145) mmol/L Potassium 3.9 (3.4-5.1) mmol/L Chloride 103 (98-107) mmol/L Carbon Dioxide 26 (22-32) mmol/L BUN 10 (7-17) mg/dL Creatinine 0.68 (0.52-1.04) mg/dL Estimated GFR > 60.0 (>60) mL/min BUN/Creatinine Ratio 14.7 (6-22) Glucose 85 (70-100) mg/dL Lactate 1.2 (0.7-2.1) mmol/L Calcium 9.0 (8.4-10.2) mg/dL Total Bilirubin 0.2 (0.2-1.3) mg/dL AST 26 (14-36) IU/L ALT 18 (<35) IU/L Alkaline Phosphatase 146 H (38-126) U/L Total Protein 7.1 (6.3-8.2) g/dL Albumin 4.0 (3.5-5.0) g/dL Globulin 3.1 (1.7-4.1) g/dL Albumin/Globulin Ratio 1.3 (1.0-2.8) Procalcitonin (<0.5) ng/mL COVID-19 PCR (Negative) Point of Care Testing Test Results Negative Urine Dip Bedside Urine Glucose Negative Bedside Urine Bilirubin - Negative Bedside Urine Ketone - Negative Urine Specific [place] 1.010 Bedside Urine Occult Blood - Negative Bedside Urine pH 7.5 Bedside Urine Protein - Negative Bedside Urine Urobilinogen - Negative Bedside Urine Nitrite - Negative Bedside Urine Leukocytes - Negative Esterase Discharge Plan Departure Patient Disposition: Home Clinical Impression: Asthma with exacerbation Qualifiers: Asthma severity: unspecified severity Asthma persistence: unspecified Qualified Code(s): J45.901 - Unspecified asthma with (acute) exacerbation Discharge Date/Time: 12/14/19 21:27 Instructions: How to Use a Metered-Dose Inhaler, DI for Asthma -- Adult, How to Use a Nebulizer Activity Restrictions/Additional Instructions: Thank you for trusting us with your care today. As discussed, I sent 3 prescriptions to [facility] in [place]. This includes steroids, inhaler refill and the nebulizer medicine. Today you tested negative for coronavirus, had a normal chest x-ray and your lab work is reassuring As discussed, please follow-up with primary care provider in the next 48-72 hours. In the meantime please come back to the emergency department for any acute concerns. Prescriptions: New albuterol sulfate 90 mcg/actuation HFA aerosol inhaler 2 puff INHALATION Q4-6H PRN (Reason: shortness of breath or wheezing) Qty: 18 RF: 0 ipratropium-albuterol 0.5 mg-3 mg(2.5 mg base)/3 mL solution for nebulization 3 ml INHALATION Q4-6H PRN (Reason: shortness of breath or wheezing) Qty: 15 RF: 0 prednisone 20 mg tablet 40 mg PO DAILY Qty: 10 RF: 0 No Action levothyroxine 25 mcg tablet 25 mcg PO DAILY Qty: 90 RF: 0 fluticasone propion-salmeterol [Advair Diskus] 250-50 mcg/dose blister with device 1 inhalation INHALATION BID Qty: 60 RF: 3 paroxetine HCl 10 mg tablet 10 mg PO DAILY Qty: 60 RF: 0 albuterol sulfate 90 mcg/actuation HFA aerosol inhaler 2 puff INHALATION Q4-6H PRNRF: 0 Referrals: Tami Delacruz ARNP [Primary Care Provider] - <Javon Morris DO - Last Filed: 12/15/19 01:16> [facility] ED Attending Anthony Attestation: I was immediately available in the department for consultation. This documenta tion has been reviewed and I agree with assessment and plan. Supervised by Javon Morris DO
== END 2019-12-14 21:27 | disposition home or self-care (01) ==
PROVIDERS: Emergency Medicine; Emergency Provider Nurse Practitioner Family; PCP Nurse Practitioner Family
DX: J45.901 Unspecified asthma with (acute) exacerbation (principal); Z03.818 Encounter for observation for suspected exposure to other biological agents ruled out
CPT/HCPCS: 36415; 71046; 80053; 81003; 81025; 83605; 84145; 85025; 87635; 93005; 94640; 96361; 96374; 96375; 99284; J1885; J2405; J2930; J7613

== ENCOUNTER → 2020-04-04 14:10 | Outpatient (CLI) | payer OTHER, SELFPAY ==
[2020-04-04 20:56] LABS: Urine N gonorrhoeae NOT DETECTED
[2020-04-04 20:57] LABS: Urine Chlamydia NOT DETECTED
== END ==
PROVIDERS: PCP Nurse Practitioner Family; Visit Provider Obstetrics & Gynecology
DX: Z34.90 Encounter for supervision of normal pregnancy, unspecified, unspecified trimester (principal); Z11.59 Encounter for screening for other viral diseases; Z11.8 Encounter for screening for other infectious and parasitic diseases; Z3A.10 10 weeks gestation of pregnancy
CPT/HCPCS: 87491; 87591

== ENCOUNTER → 2020-06-28 11:49 | Outpatient (CLI) | payer OTHER, MEDICAID, SELFPAY ==
[2020-06-28 13:04] LABS: Add Manual Diff / Slide Review NO; Basophils Absolute Auto 0 /uL (0-100); Basophils Percent Auto 0.2 % (0-2); Eosinophils Absolute Auto 200 /uL (0-450); Eosinophils Percent Auto 3.2 % (2-4); Hematocrit 37.9 % (36-46); Hemoglobin 12.3 g/dL (12.0-16.0); Lymphocytes Absolute Auto 2500 /uL (1100-4500); Lymphocytes Percent Auto 32.3 % (25-40); Mean Corpuscular HGB Conc 32.5 % (30-36); Mean Corpuscular Hemoglobin 26.8 PG (26-34); Mean Corpuscular Volume 82.4 fL (80-100); Monocytes Absolute Auto 500 /uL (0-900); Monocytes Percent Auto 6.6 % (3-14); Neutrophils Absolute Auto 4400 /uL (1500-7000); Neutrophils Percent Auto 57.7 % (50-75); Platelet Count 182 X10^3/uL (150-400); Red Cell Distribution Width 14.4 % (11.6-14.8); White Blood Cell Count 7.7 X10^3/uL (4.5-11.0)
[2020-06-28 13:40] LABS: Free T4, Direct Thyroxine 0.95 ng/dL (0.78-2.19)
[2020-06-28 13:54] LABS: Thyroid Stimulating Hormone 1.15 uIU/mL (0.47-4.68)
[2020-06-28 15:42] LABS: Hepatitis B Surface Antigen NEGATIVE s/c (NEGATIVE); Rubella Antibody IgG 44.5 IU/mL (>15)
[2020-06-28 15:56] LABS: Hep C Virus Ab w/Reflex Quant NEGATIVE s/c (NEGATIVE)
[2020-06-28 15:57] LABS: HIV 1 & 2 Ab/Ag 4th Gen Combo NEGATIVE (NEGATIVE)
[2020-06-29 07:08] LABS: RPR Screen Non Reactive (Non Reactive)
[2020-06-29 08:08] LABS: Varicella IgG Antibody 1579 index (Immune >165)
== END ==
PROVIDERS: PCP Nurse Practitioner Family; Referring Provider Obstetrics & Gynecology; Visit Provider Obstetrics & Gynecology
DX: Z34.81 Encounter for supervision of other normal pregnancy, first trimester (principal); E03.9 Hypothyroidism, unspecified
CPT/HCPCS: 36415; 80055; 84439; 84443; 86787; 86803; 86850; 86900; 86901; 87389

== ENCOUNTER → 2020-07-08 12:39 | Outpatient (CLI) | payer OTHER, MEDICAID, SELFPAY ==
--- NOTE | 2020-07-08 12:40 | DI.US.S_ITS ---
PROCEDURE: US OB >= 14 WEEKS FETUS INDICATIONS: 20 WEEK ANATOMICAL SURVEY OUTSIDE/PRIOR DATING DATA: Last menstrual period (LMP): January 25, 2020. LMP-based estimated date of delivery (GONSALO): October 31, 2020. First dating scan (date and location): April 04, 2020 at [facility]. Estimated date of delivery (GONSALO) from first dating scan: October 29, 2020. TECHNIQUE: Real-time scanning was performed of the fetus, with image documentation and biometric measurements. Endovaginal scanning: Performed COMPARISON: [facility], , US OB <= 14 WEEKS FETUS, 04/04/2020, 14:15. FINDINGS: General: A single living intrauterine gestation is present. Presentation: Breech Placenta: Placental position is posterior, without previa. Amniotic fluid index: 16.4 cm, normal range is 5-24 cm. heart rate: 163 beats per minute. Maternal cervical canal: Closed and 3.6 cm long. Normal lower limit is 2.5 cm. biometrics: Biparietal diameter: 24 weeks 2 days Head circumference: 24 weeks 1 day Abdominal circumference: 23 weeks 5 days Femur length: 23 weeks 4 days Estimated gestational age from initial scan: 23 weeks 6 days. Composite gestational age from present scan: 24 weeks 0 days Estimated weight and percentile: 627 grams; 37th percentile Measurement variability for biometric dating: +/- 7 days from 14 weeks to 15 weeks 6 days gestation, +/- 10 days from 16 weeks to 21 weeks 6 days gestation, +/- 2 weeks from 22 weeks to 27 weeks 6 days gestation, +/- 3 weeks for 28 weeks gestation or later. weight reference: 4500 g or EFW >90/95% is considered macrosomia or large for gestational age. EFW <10% is small for gestational age. EFW 5% or less is considered intra-uterine growth restriction. Anatomic survey: Neuro: Ventricles are non-dilated at less than 10 mm. Cisterna magna is normal at 3-11 mm. Cerebellum is normal in size and morphology. Nuchal skin fold: Normal at less than 6 mm between 14-21 weeks gestational age. Face: Nose and lips, facial profile are normal. Spine: No evidence for spina bifida. Heart: 4-chambered heart is present, with normal ventricular outflow tracts. Diaphragm: Diaphragm is intact. Stomach: Left-sided stomach is present. Kidneys: No hydronephrosis. Prominent bilateral renal pelvis is noted with right renal pelvis measuring 5.2 millimeters and left renal pelvis measuring 4.6 millimeters. Normal is less than 5 mm in 2nd trimester, less than 7 mm in 3rd trimester. Cord: 3-vessel cord has orthotopic insertion. Bladder: Normal in size. Extremities: All 4 extremities identified. IMPRESSION: 1. Single living intrauterine with appropriate interval growth. 2. Normal amniotic fluid index. 3. Slightly prominent bilateral renal pelvises. Otherwise, normal anatomic survey. Dictated by: Cheryl Fields MD, PhD on 07/08/2020 at 16:04 Approved by: Cheryl Fields MD, PhD on 07/08/2020 at 16:10
== END ==
PROVIDERS: PCP Nurse Practitioner Family; Referring Provider Obstetrics & Gynecology; Visit Provider Obstetrics & Gynecology
DX: Z34.82 Encounter for supervision of other normal pregnancy, second trimester (principal); Z3A.24 24 weeks gestation of pregnancy
CPT/HCPCS: 76811

== ENCOUNTER → 2020-08-06 15:50 | Outpatient (CLI) | payer OTHER, MEDICAID, SELFPAY ==
[2020-08-06 19:38] LABS: Appearance Urine UA CLOUDY; Bilirubin Urine UA NEGATIVE (NEGATIVE); Color Urine UA YELLOW; Glucose Urine UA NEGATIVE (Negative); Ketones Urine UA NEGATIVE (NEGATIVE); Leukocyte Esterase Urine UA NEGATIVE (NEGATIVE); Nitrite Urine UA NEGATIVE (Negative); Occult Blood Urine UA NEGATIVE (Negative); Protein Urine UA NEGATIVE (Negative); Urobilinogen Urine UA 0.2 E.U./dL (0.2)
== END ==
PROVIDERS: PCP Nurse Practitioner Family; Visit Provider Obstetrics & Gynecology
DX: Z34.81 Encounter for supervision of other normal pregnancy, first trimester (principal)
CPT/HCPCS: 81003; 87086

== ENCOUNTER → 2020-08-27 13:44 | Outpatient (CLI) | payer OTHER, MEDICAID, SELFPAY ==
--- NOTE | 2020-08-27 13:45 | DI.US.S_ITS ---
PROCEDURE: US OB FOLLOW UP INDICATIONS: FOLLOW UP RENAL PELVIS OUTSIDE/PRIOR DATING DATA: Last menstrual period (LMP): 01/25/20. LMP-based estimated date of delivery (GONSALO): 10/31/20 First dating scan (date and location): 07/08/20 Estimated date of delivery (GONSALO) from first dating scan: 10/29/20 TECHNIQUE: Real-time scanning was performed of the fetus, with image documentation. Endovaginal scanning: Not needed COMPARISON: [facility], OB >= 14 WEEKS FETUS, 07/08/2020, 13:21. FINDINGS: A single living intrauterine gestation is present. Presentation: Vertex. Placenta: Placental position is posterior , without previa. Amniotic fluid index: 11.7 cm, normal range is 5-24 cm. heart rate: 130 beats per minute. Maternal cervical canal: Not well seen due to vertex presentation Estimated gestational age from initial scan: 31 weeks 0 days. Currently no hydronephrosis found. IMPRESSION: Resolution of prominence of the renal collecting system bilaterally. Delivery date is projected to be centered on 10/29/20. Dictated by: eDrick Jacobson M.D. on 08/27/2020 at 16:30 Approved by: Derick Jacobson M.D. on 08/27/2020 at 16:38
== END ==
PROVIDERS: PCP Nurse Practitioner Family; Referring Provider Obstetrics & Gynecology; Visit Provider Obstetrics & Gynecology
DX: Z36.2 Encounter for other antenatal screening follow-up (principal); Z3A.31 31 weeks gestation of pregnancy
CPT/HCPCS: 76816

== ENCOUNTER → 2020-09-27 15:31 | Outpatient (CLI) | payer OTHER, MEDICAID, SELFPAY ==
[2020-09-28 14:34] LABS: Strep Grp B PCR NEG for Grp B Strep
== END ==
PROVIDERS: PCP Nurse Practitioner Family; Visit Provider Obstetrics & Gynecology
DX: Z34.83 Encounter for supervision of other normal pregnancy, third trimester (principal); Z3A.35 35 weeks gestation of pregnancy
CPT/HCPCS: 87653

== ENCOUNTER → 2020-09-27 15:54 | Outpatient (CLI) | payer OTHER, SELFPAY ==
[2020-09-27 17:56] LABS: Hematocrit 30.8 % (36-46); Hemoglobin 9.9 g/dL (12.0-16.0)
[2020-09-27 18:25] LABS: GTT (PREG) 1 Hour PP 50gm Dose 112 mg/dL (76-139)
[2020-09-27 18:33] LABS: Add Manual Diff / Slide Review NO; Basophils Absolute Auto 0 /uL (0-100); Basophils Percent Auto 0.3 % (0-2); Eosinophils Absolute Auto 100 /uL (0-450); Eosinophils Percent Auto 1.8 % (2-4); Lymphocytes Absolute Auto 2100 /uL (1100-4500); Lymphocytes Percent Auto 27.5 % (25-40); Mean Corpuscular Hemoglobin 24.9 PG (26-34); Mean Corpuscular Volume 77.9 fL (80-100); Monocytes Absolute Auto 600 /uL (0-900); Monocytes Percent Auto 7.5 % (3-14); Neutrophils Absolute Auto 4700 /uL (1500-7000); Neutrophils Percent Auto 62.9 % (50-75); Platelet Count 130 X10^3/uL (150-400); Red Blood Cell Count 3.98 X10^6/uL (4.0-5.2); Red Cell Distribution Width 14.1 % (11.6-14.8); White Blood Cell Count 7.5 X10^3/uL (4.5-11.0)
[2020-09-27 18:35] LABS: Aspartate Aminotransferase 78 IU/L (14-36); Estimated Glomerular Filt Rate > 60.0 mL/min (>60); Uric Acid 2.7 mg/dL (2.5-6.2)
[2020-09-27 18:38] LABS: BUN Creatinine Ratio 5.3 (6-22); Blood Urea Nitrogen 2 mg/dL (7-17)
== END ==
PROVIDERS: Obstetrics & Gynecology; PCP Nurse Practitioner Family; Referring Provider Nurse Practitioner Family; Visit Provider Nurse Practitioner Family
DX: Z34.83 Encounter for supervision of other normal pregnancy, third trimester (principal); Z3A.36 36 weeks gestation of pregnancy
CPT/HCPCS: 82950; 84450; 84550; 85025

== ENCOUNTER 2020-09-27 17:41 | Outpatient (CLI) | payer OTHER, SELFPAY | END 2020-09-27 19:20 | disposition home or self-care (01) | LOC: LABOR 18:37 → OB 10-02 15:04 | PROVIDERS: PCP Nurse Practitioner Family; Referring Provider Obstetrics & Gynecology; Visit Provider Obstetrics & Gynecology | DX: O13.3 Gestational [pregnancy-induced] hypertension without significant proteinuria, third trimester (principal); O36.8130 Decreased fetal movements, third trimester, not applicable or unspecified; O26.893 Other specified pregnancy related conditions, third trimester; R51.9 Headache, unspecified; R42 Dizziness and giddiness; R60.9 Edema, unspecified; Z3A.35 35 weeks gestation of pregnancy | CPT/HCPCS: 59025; 82950; 84450; 84550; 85025; 87653; G0378; G0379 ==

== ENCOUNTER 2020-09-30 13:18 | Inpatient (IN) | payer OTHER, MEDICAID, SELFPAY ==
[2020-09-30 13:40] LABS: Add Manual Diff / Slide Review NO; Basophils Absolute Auto 0 /uL (0-100); Basophils Percent Auto 0.3 % (0-2); Eosinophils Absolute Auto 200 /uL (0-450); Eosinophils Percent Auto 1.9 % (2-4); Lymphocytes Absolute Auto 2300 /uL (1100-4500); Lymphocytes Percent Auto 28.1 % (25-40); Mean Corpuscular HGB Conc 32.2 % (30-36); Mean Corpuscular Hemoglobin 24.8 PG (26-34); Mean Corpuscular Volume 76.9 fL (80-100); Monocytes Absolute Auto 700 /uL (0-900); Monocytes Percent Auto 8.6 % (3-14); Neutrophils Absolute Auto 4900 /uL (1500-7000); Neutrophils Percent Auto 61.1 % (50-75); Platelet Count 114 X10^3/uL (150-400); Red Blood Cell Count 4.03 X10^6/uL (4.0-5.2); Red Cell Distribution Width 14.2 % (11.6-14.8)
[2020-09-30 13:51] LABS: Aspartate Aminotransferase 247 IU/L (14-36); Estimated Glomerular Filt Rate > 60.0 mL/min (>60); Uric Acid 2.8 mg/dL (2.5-6.2)
[2020-09-30 13:52] LABS: BUN Creatinine Ratio 5.3 (6-22); Blood Urea Nitrogen < 2 mg/dL (7-17)
[2020-09-30 14:08] LABS: Creatinine Urine Random 157.9 mg/dL; Protein (Total) Urine Random 16 mg/dL (0-12)
[2020-09-30] MEDS: LABETALOL 100 MG TABLET 200 MG PO (14:49)
[2020-09-30] MEDS: BETAMETHASONE 30 MG/5 ML MDV 12 MG IM (14:49)
[2020-09-30 16:26] LABS: Add Manual Diff / Slide Review NO; Basophils Absolute Auto 0 /uL (0-100); Basophils Percent Auto 0.2 % (0-2); Eosinophils Absolute Auto 100 /uL (0-450); Eosinophils Percent Auto 1.6 % (2-4); Hematocrit 29.3 % (36-46); Hemoglobin 9.6 g/dL (12.0-16.0); Lymphocytes Absolute Auto 2500 /uL (1100-4500); Lymphocytes Percent Auto 29.3 % (25-40); Mean Corpuscular HGB Conc 32.6 % (30-36); Mean Corpuscular Hemoglobin 24.9 PG (26-34); Mean Corpuscular Volume 76.1 fL (80-100); Monocytes Absolute Auto 700 /uL (0-900); Monocytes Percent Auto 8.4 % (3-14); Neutrophils Absolute Auto 5100 /uL (1500-7000); Neutrophils Percent Auto 60.5 % (50-75); Platelet Count 118 X10^3/uL (150-400); Red Blood Cell Count 3.85 X10^6/uL (4.0-5.2); Red Cell Distribution Width 14.6 % (11.6-14.8); White Blood Cell Count 8.4 X10^3/uL (4.5-11.0)
[2020-09-30 17:13] LABS: COVID19 - ADMIT (NP swab/PCR) Negative (Negative)
[2020-09-30 17:50] VITALS: BP 158/87
[2020-09-30] MEDS: LACTATED RINGERS 1,000 ML 100 ML IV (18:00)
[2020-09-30] MEDS: DINOPROSTONE VAG (CERVIDIL) 10 MG VAG (18:12)
--- NOTE | 2020-09-30 19:03 | PM.OBHP.1 ---
OB HPI Date/Time Date of admission: 09/30/20 Date Patient Seen: 09/30/20 Time Patient Seen: 19:03 History of Present Condition Chief complaint: NST : 3 Para: 1 Estimated Date of Delivery: 10/31/20 Estimated Gestational Age (weeks): 35+4 Narrative: Antelmo Serra is a 25 year old female 3 para 1 at 35-,4/7 weeks gestation who is admitted for cervical ripening/induction of labor due to HELLP syndrome Comments: Patient called the office today with a persistent headache. She has had some mildly elevated blood pressures over the last 5 days. This headache would not go way. She also had some decreased movement. She had labs upon admission today and was found to have a platelet count that had dropped to 118. She also had liver function tests in the 200s. Indications Indication for induction OB: other (HELLP syndrome) History of Present care: good care, initiated at week # (9), number of visits (8) and pounds weight gain (18) Dating criteria: LMP confirmed by 1st trimester US Ultrasounds: normal 1st trimester US and abnormal US findings Abnormal ultrasound findings: Slightly prominent bilateral renal pelvises. On repeat ultrasound resolved. Obstetrical complications: gestational hypertension Medical complications: none Preadmission Labs Blood type: B (+) positive -: Antibody screen: negative, GBS status: negative, HBsAG: negative, HIV: negative and RPR/VDLR: negative -: Chlamydia screen: not detected and Gonorrhea screen: not detected -: Rubella: immune and Varicella: immune HCT: 29.3 HCAB: negative PAP: Normal (2018) Urine: Negative 1 hr GTT: 112 Prior (ies) History: at home, perineal laceration that had to be redone Evaluation Evaluation Baseline heart rate: 140 Variability: Moderate (11-25) monitor accelerations: Present Monitor Decelerations: Absent Contraction Frequency (minutes): 5 Status: Category l Cervical dilation (cm): 1 Cervical effacement (%): 25 station: -3 Laboratory results: Laboratory Tests 09/30/20 09/30/20 09/30/20 13:34 13:34 13:34 WBC 8.0 RBC 4.03 Hgb 10.0 L Hct 31.0 L MCV 76.9 L MCH 24.8 L MCHC 32.2 RDW 14.2 Plt Count 114 L Neut % (Auto) 61.1 Lymph % (Auto) 28.1 [place] % (Auto) 8.6 Eos % (Auto) 1.9 L Baso % (Auto) 0.3 Neut # (Auto) 4900 Lymph # (Auto) 2300 [place] # (Auto) 700 Eos # (Auto) 200 Baso # (Auto) 0 BUN < 2 L Creatinine 0.38 L Estimated GFR > 60.0 BUN/Creatinine Ratio 5.3 L Uric Acid 2.8 AST 247 H U Random Total Protein 16 H Urine Creatinine 157.9 Protein/Creatinin Ratio 0.10 SARS-CoV-2 (PCR) Blood Type Antibody Screen 09/30/20 09/30/20 09/30/20 16:00 16:00 16:00 WBC 8.4 RBC 3.85 L Hgb 9.6 L Hct 29.3 L MCV 76.1 L MCH 24.9 L MCHC 32.6 RDW 14.6 Plt Count 118 L Neut % (Auto) 60.5 Lymph % (Auto) 29.3 [place] % (Auto) 8.4 Eos % (Auto) 1.6 L Baso % (Auto) 0.2 Neut # (Auto) 5100 Lymph # (Auto) 2500 [place] # (Auto) 700 Eos # (Auto) 100 Baso # (Auto) 0 BUN Creatinine Estimated GFR BUN/Creatinine Ratio Uric Acid AST U Random Total Protein Urine Creatinine Protein/Creatinin Ratio SARS-CoV-2 (PCR) Negative Blood Type B Positive Antibody Screen Negative [facility] Medical History (Updated 09/27/20 @ 16:02 by Daisy Mason MD) Arm fracture, right Asthma Diarrhea Elevated alkaline phosphatase level Fracture of thumb, proximal phalanx, right, closed Hypothyroidism (2011) Pelvic floor dysfunction in female Pelvic floor tension Post concussive syndrome (03/2018) Right shoulder pain (03/2018) Third degree perineal laceration during delivery (07/26/18) Vaginal delivery (07/16/18) Vomiting Surgical History (Updated 03/28/20 @ 09:36 by Mary Landry, EMANI) H/O wisdom tooth extraction (~08/2017) Status post surgery (~09/22/18) Family History (Updated 03/28/20 @ 10:31 by Mary Landry, RN) Mother Diabetes mellitus Depression Anxiety Father Mental health disorder Family estrangement Grandmother Diabetes mellitus Grandfather Heart disease Grandmother Heart disease Asthma Family estrangement Grandfather Heart disease Family estrangement Mental health disorder Family/Other Mental health disorder Brother No problems noted. Family/Other Family history of fraternal twins Social History marital status: number of children: 1 household members: spouse and children lives independently: Yes pets and animals: Yes (Cats X 2 ) education level: college (Some College : Psych) occupational status: unemployed (Engineering Project Manager ) current occupational exposures/hazards: Yes (Flew to [place] - will be home 04/03/20) special eliel needs: No Smoking Status: Never smoker second hand exposure: No alcohol intake: former (Pre- : very rare) substance use type: does not use Meds Home Medications and Allergies Home Medications Medication Instructions Recorded Confirmed Type ipratropium 0.5 mg-albuterol 3 mg 3 ml INHALATION Q4-6H PRN #15 ml 12/14/19 09/12/20 Rx (2.5 mg base)/3 mL nebulization soln albuterol sulfate 90 mcg/actuation 2 puff INHALATION Q4-6H PRN #18 03/14/20 09/12/20 Rx aerosol inhaler gram fluticasone 250 mcg-salmeterol 50 1 inh INHALATION BID #60 each 03/14/20 09/12/20 Rx mcg/dose blistr powdr for inhalation (Advair Diskus) levothyroxine 25 mcg tablet 25 mcg PO DAILY #90 tab 03/14/20 09/12/20 Rx ondansetron 4 mg disintegrating 4 mg PO Q6H #20 tab 03/19/20 09/12/20 Rx tablet pyridoxine (vitamin B6) 50 mg 25 mg PO TID PRN #60 tab 03/20/20 09/30/20 Rx tablet doxylamine succinate 25 mg tablet 25 mg PO BEDTIME PRN 03/28/20 09/12/20 History (Unisom (doxylamine)) metoclopramide HCl 10 mg tablet 10 mg PO TID PRN #60 tab 04/15/20 09/12/20 Rx (Reglan) buspirone 5 mg tablet 5 mg PO BID #60 tab 06/04/20 09/12/20 Rx citalopram 10 mg tablet 10 mg PO DAILY #60 tab 06/04/20 09/12/20 Rx Allergies Allergy/AdvReac Type Severity Reaction Status Date / Time shellfish derived Allergy Severe Lip Verified 09/12/20 16:53 Swelling oxycodone AdvReac Mild Rash/Itchin Verified 09/12/20 16:53 g Exam Vital Signs (past 8 hours): - 09/30/20 17:50 Blood Pressure 158/87 H Narrative Exam Narrative: Patient is sitting up in bed, no acute distress Lungs: Clear to auscultation bilaterally Cardiovascular: Regular rate and rhythm Fundal height: 36 cm Estimated weight: 6-1/2 lb Extremities: 1+ edema, Objective Labs Result Diagrams: 09/30/20 16:00 09/30/20 13:34 Labs: Laboratory Results - last 24 hr 09/30/20 09/30/20 09/30/20 13:34 13:34 13:34 WBC 8.0 RBC 4.03 Hgb 10.0 L Hct 31.0 L MCV 76.9 L MCH 24.8 L MCHC 32.2 RDW 14.2 Plt Count 114 L Neut % (Auto) 61.1 Lymph % (Auto) 28.1 [place] % (Auto) 8.6 Eos % (Auto) 1.9 L Baso % (Auto) 0.3 Neut # (Auto) 4900 Lymph # (Auto) 2300 [place] # (Auto) 700 Eos # (Auto) 200 Baso # (Auto) 0 BUN < 2 L Creatinine 0.38 L Estimated GFR > 60.0 BUN/Creatinine Ratio 5.3 L Uric Acid 2.8 AST 247 H U Random Total Protein 16 H Urine Creatinine 157.9 Protein/Creatinin Ratio 0.10 SARS-CoV-2 (PCR) Blood Type Antibody Screen 09/30/20 09/30/20 09/30/20 16:00 16:00 16:00 WBC 8.4 RBC 3.85 L Hgb 9.6 L Hct 29.3 L MCV 76.1 L MCH 24.9 L MCHC 32.6 RDW 14.6 Plt Count 118 L Neut % (Auto) 60.5 Lymph % (Auto) 29.3 [place] % (Auto) 8.4 Eos % (Auto) 1.6 L Baso % (Auto) 0.2 Neut # (Auto) 5100 Lymph # (Auto) 2500 [place] # (Auto) 700 Eos # (Auto) 100 Baso # (Auto) 0 BUN Creatinine Estimated GFR BUN/Creatinine Ratio Uric Acid AST U Random Total Protein Urine Creatinine Protein/Creatinin Ratio SARS-CoV-2 (PCR) Negative Blood Type B Positive Antibody Screen Negative Assessment and Plan Assessment and Plan Assessment and Plan narrative: Assessment: 25-year-old 3 para 1 at 35-,4/7 weeks gestation with HELLP syndrome Plan: Cervidil placed Labetalol 200 mg p.o. x1 given Ambien as needed Epidural as necessary Pitocin induction in the morning if cervix favorable Pediatrics notified Time Spent with Patient Total time spent with greater than 50% in coordination of care (as documented) at patient's floor/unit and/or counseling patient:: 25 - 35 minutes
[2020-09-30 19:26] LABS: Add Manual Diff / Slide Review NO; Basophils Absolute Auto 0 /uL (0-100); Basophils Percent Auto 0.1 % (0-2); Eosinophils Absolute Auto 0 /uL (0-450); Eosinophils Percent Auto 0.1 % (2-4); Hematocrit 30.2 % (36-46); Hemoglobin 9.7 g/dL (12.0-16.0); Lymphocytes Absolute Auto 1100 /uL (1100-4500); Lymphocytes Percent Auto 12.6 % (25-40); Mean Corpuscular HGB Conc 32.1 % (30-36); Mean Corpuscular Hemoglobin 24.6 PG (26-34); Mean Corpuscular Volume 76.8 fL (80-100); Monocytes Absolute Auto 200 /uL (0-900); Monocytes Percent Auto 2.1 % (3-14); Neutrophils Absolute Auto 7500 /uL (1500-7000); Neutrophils Percent Auto 85.1 % (50-75); Platelet Count 113 X10^3/uL (150-400); Red Blood Cell Count 3.94 X10^6/uL (4.0-5.2); Red Cell Distribution Width 14.6 % (11.6-14.8); White Blood Cell Count 8.8 X10^3/uL (4.5-11.0)
[2020-09-30 19:38] LABS: Aspartate Aminotransferase 226 IU/L (14-36); Estimated Glomerular Filt Rate > 60.0 mL/min (>60); Uric Acid 3.1 mg/dL (2.5-6.2)
[2020-09-30 19:39] LABS: BUN Creatinine Ratio 4.3 (6-22); Blood Urea Nitrogen 2 mg/dL (7-17)
[2020-09-30] MEDS: ZOLPIDEM 5 MG TABLET 10 MG PO (20:49)
[2020-09-30] MEDS: CALCIUM CARBONATE 500 MG TAB 1000 MG PO (21:45)
[2020-10-01 06:08] LABS: Add Manual Diff / Slide Review NO; Basophils Absolute Auto 0 /uL (0-100); Basophils Percent Auto 0.1 % (0-2); Eosinophils Absolute Auto 0 /uL (0-450); Hematocrit 30.8 % (36-46); Hemoglobin 9.8 g/dL (12.0-16.0); Lymphocytes Absolute Auto 1400 /uL (1100-4500); Lymphocytes Percent Auto 13.8 % (25-40); Mean Corpuscular HGB Conc 31.8 % (30-36); Mean Corpuscular Hemoglobin 24.6 PG (26-34); Mean Corpuscular Volume 77.2 fL (80-100); Monocytes Absolute Auto 600 /uL (0-900); Monocytes Percent Auto 6.1 % (3-14); Neutrophils Absolute Auto 8200 /uL (1500-7000); Platelet Count 127 X10^3/uL (150-400); Red Blood Cell Count 3.99 X10^6/uL (4.0-5.2); Red Cell Distribution Width 14.6 % (11.6-14.8); White Blood Cell Count 10.2 X10^3/uL (4.5-11.0)
[2020-10-01 06:15] LABS: Aspartate Aminotransferase 205 IU/L (14-36); Estimated Glomerular Filt Rate > 60.0 mL/min (>60); Uric Acid 3.4 mg/dL (2.5-6.2)
[2020-10-01 06:16] LABS: BUN Creatinine Ratio 5.3 (6-22); Blood Urea Nitrogen 2 mg/dL (7-17)
[2020-10-01] MEDS: OXYTOCIN PREMIX 30 UNIT/500 ML PLAST..BAG IV (08:28)
[2020-10-01] MEDS: LACTATED RINGERS 1,000 ML 100 ML IV (08:34)
[2020-10-01 17:00] LABS: Hematocrit 32.7 % (36-46); Hemoglobin 10.3 g/dL (12.0-16.0); Mean Corpuscular HGB Conc 31.6 % (30-36); Mean Corpuscular Hemoglobin 24.3 PG (26-34); Platelet Count 133 X10^3/uL (150-400); Red Blood Cell Count 4.25 X10^6/uL (4.0-5.2); Red Cell Distribution Width 14.7 % (11.6-14.8); White Blood Cell Count 11.4 X10^3/uL (4.5-11.0)
[2020-10-01 17:09] LABS: Prothrombin Time 11.4 SECONDS (10.1-12.7)
[2020-10-01 17:11] LABS: Alanine Aminotransferase 65 IU/L (<35); Albumin 3.1 g/dL (3.5-5.0); Alkaline Phosphatase 142 U/L (38-126); Aspartate Aminotransferase 209 IU/L (14-36); Bilirubin Total 0.3 mg/dL (0.2-1.3); Bilirubin Unconjugated 0.2 mg/dL (0.0-1.1); Globulin 3.1 g/dL (1.7-4.1); HEMOLYSIS < 15 (0-50); PTT Partial Thromboplastin Tim 26 SECONDS (26.4-36.2); Total Protein 6.2 g/dL (6.3-8.2)
[2020-10-01] MEDS: ONDANSETRON 4 MG/2 ML INJ IV (19:48)
--- NOTE | 2020-10-01 20:47 | PM.OBPNLAB ---
Date/Time Date Patient Seen: 10/01/20 Time Patient Seen: 08:00 Pain Control Pain control: tolerating well Pelvic Exam Dilation (cm): 2 Effacement (%): 80 station: -1 Amniotic membrane status: Intact Contractions Monitor mode: External Pitocin rate (mU/min): 2 Contraction frequency (min): 5 Contraction duration (min): 1 Contraction intensity: Mild Status status: Category l Heart Rate Baseline: 135 Monitor Accelerations: Present Monitor Decelerations: Absent Monitor Variability: Moderate Assessment and Plan Assessment: induction ongoing Plan: continuous present management
--- NOTE | 2020-10-01 20:49 | PM.OBPNLAB ---
Date/Time Date Patient Seen: 10/01/20 Time Patient Seen: 13:25 Pain Control Pain control: epidural Pelvic Exam Dilation (cm): 3 Effacement (%): 85 station: 0 Amniotic membrane status: Bulging Contractions Monitor mode: External Pitocin rate (mU/min): 12 Contraction frequency (min): 5 Contraction pattern: Regular Contraction intensity: Moderate Status status: Category l Heart Rate Baseline: 135 Monitor Accelerations: Present Monitor Decelerations: Absent Monitor Variability: Moderate Assessment and Plan Assessment: active labor Comments: Artificial rupture of membranes with copious clear amniotic fluid
--- NOTE | 2020-10-01 20:50 | PM.OBPNLAB ---
Date/Time Date Patient Seen: 10/01/20 Time Patient Seen: 16:00 Pain Control Pain control: epidural Pelvic Exam Dilation (cm): 4 Effacement (%): 85 station: 0 Amniotic membrane status: Bulging Contractions Monitor mode: External Pitocin rate (mU/min): 12 Contraction frequency (min): 3 Contraction duration (min): 1 Contraction pattern: Regular Contraction intensity: Strong/Firm Status status: Category l Heart Rate Baseline: 140 Monitor Accelerations: Present Monitor Decelerations: Absent Monitor Variability: Moderate Assessment and Plan Assessment: active labor and induction ongoing Plan: continuous present management
--- NOTE | 2020-10-01 21:09 | PM.OBPRVD ---
Events: Labor Induction Labor & Delivery Delivery date: 10/01/20 Intrapartal Events: Mild Preeclampsia and HELLP Syndrome Cervical ripening method: per Cervidil protocol Induction method: per pitocin protocol Delivery augmentation: rupture of membranes Delivery monitor: external FHT and external uterine Route of delivery: Episiotomy description: None L&D Laceration Description: Perineal - 1st Degree, Vaginal - 1st Degree and Superficial (periurethral tear) Delivery repair: vicryl and chromic Estimated blood loss (mL): 150 Anesthesia Type: Epidural Complications: None [place] Baby 1: Infant gender: Female Presentation: vertex Position: Left Occiput Anterior Placenta delivery description: Spontaneous Cord Vessel Description: 3 Vessels, Nuchal Cord, Loose, Reduced and Clamped/Cut score (1 min): 7 score (5 min): 9 Narrative: Patient complete and pushed for 18 minutes. At 6:50 p.m., a live female delivered in the left occiput anterior presentation over an intact perineum. In there was a loose nuchal cord x1 which was reduced on the perineum. The remainder of the body delivered without difficulty and was placed on mom's abdomen. After the cord stopped pulsing, the cord was double clamped and cut. Cord bloods were obtained. Pitocin was given in the IV fluids. The placenta delivered intact with a three-vessel cord at 6:55 p.m.. The fundus was massaged to firm. There was a first-degree vaginal and first-degree perineal laceration which were repaired in the usual fashion. There was a superficial periurethral tear which was repaired with 4 0 chromic with a simple interrupted stitch. Apgars 7 at 1 minute and 9 at 5 minutes. Estimated blood loss 150 cc. . Mom and stable to recovery. The baby did go to the warmer with Pediatrics and RT for several minutes but no major problems encountered. Plan for aftercare: Routine care
[2020-10-01 21:15] LABS: Add Manual Diff / Slide Review NO; Basophils Absolute Auto 0 /uL (0-100); Basophils Percent Auto 0.1 % (0-2); Eosinophils Absolute Auto 0 /uL (0-450); Hematocrit 32.3 % (36-46); Hemoglobin 10.2 g/dL (12.0-16.0); Lymphocytes Absolute Auto 1400 /uL (1100-4500); Mean Corpuscular HGB Conc 31.6 % (30-36); Mean Corpuscular Hemoglobin 24.2 PG (26-34); Mean Corpuscular Volume 76.7 fL (80-100); Monocytes Absolute Auto 1100 /uL (0-900); Monocytes Percent Auto 6.3 % (3-14); Neutrophils Absolute Auto 14900 /uL (1500-7000); Neutrophils Percent Auto 85.6 % (50-75); Platelet Count 137 X10^3/uL (150-400); Red Blood Cell Count 4.21 X10^6/uL (4.0-5.2); Red Cell Distribution Width 14.6 % (11.6-14.8); White Blood Cell Count 17.5 X10^3/uL (4.5-11.0)
[2020-10-01 21:26] LABS: Aspartate Aminotransferase 179 IU/L (14-36); Estimated Glomerular Filt Rate > 60.0 mL/min (>60)
[2020-10-01 21:27] LABS: BUN Creatinine Ratio 4.9 (6-22); Blood Urea Nitrogen < 2 mg/dL (7-17)
[2020-10-01] MEDS: IBUPROFEN 600 MG TABLET PO (21:37)
[2020-10-01] MEDS: ACETAMINOPHEN 325 MG TABLET 650 MG PO (21:37)
[2020-10-01] MEDS: DERMOPLAST SPRAY 20% 60 ML 1 SPRAY TOP (21:42)
[2020-10-01] MEDS: ALBUTEROL 2.5 MG/3 ML NEB (ADULT) INH (21:43)
[2020-10-01 22:45] VITALS: BP 152/82; PULSE 70
[2020-10-01] MEDS: LABETALOL 100 MG TABLET 200 MG PO (22:45)
[2020-10-01 23:30] VITALS: BP 122/70; PULSE 77
[2020-10-02] VITALS (9 sets, daily range): BP systolic 125–145; BP diastolic 79–85; PULSE 61–71; RESP 16; TEMP 36.3–36.5; O2SAT 100
[2020-10-02] MEDS: ACETAMINOPHEN 325 MG TABLET 650 MG PO ×4 (03:10→21:58)
[2020-10-02] MEDS: IBUPROFEN 600 MG TABLET PO ×4 (03:10→21:59)
[2020-10-02] MEDS: LEVOTHYROXINE 25 MCG TABLET PO (06:11)
[2020-10-02 07:57] LABS: Add Manual Diff / Slide Review NO; Basophils Absolute Auto 0 /uL (0-100); Basophils Percent Auto 0.1 % (0-2); Eosinophils Absolute Auto 0 /uL (0-450); Hemoglobin 9.1 g/dL (12.0-16.0); Lymphocytes Absolute Auto 2500 /uL (1100-4500); Lymphocytes Percent Auto 11.7 % (25-40); Mean Corpuscular HGB Conc 31.5 % (30-36); Mean Corpuscular Hemoglobin 24.3 PG (26-34); Mean Corpuscular Volume 77.2 fL (80-100); Monocytes Absolute Auto 1500 /uL (0-900); Monocytes Percent Auto 7.2 % (3-14); Neutrophils Absolute Auto 17000 /uL (1500-7000); Platelet Count 127 X10^3/uL (150-400); Red Blood Cell Count 3.75 X10^6/uL (4.0-5.2); Red Cell Distribution Width 14.6 % (11.6-14.8)
[2020-10-02 08:12] LABS: Aspartate Aminotransferase 179 IU/L (14-36); BUN Creatinine Ratio 4.9 (6-22); Blood Urea Nitrogen < 2 mg/dL (7-17); Estimated Glomerular Filt Rate > 60.0 mL/min (>60); Uric Acid 3.9 mg/dL (2.5-6.2)
[2020-10-02] MEDS: CITALOPRAM 10 MG TABLET PO (08:52)
[2020-10-02] MEDS: DOCUSATE 100 MG CAPSULE PO (08:52)
[2020-10-02] MEDS: BUSPIRONE 5 MG TABLET PO (08:52)
[2020-10-02] MEDS: PRENATAL VIT,CALC/IRON/FOLIC 1 TABLET 1 TAB PO (08:53)
[2020-10-02] MEDS: LABETALOL 100 MG TABLET 200 MG PO ×2 (08:53→21:02)
[2020-10-02] MEDS: ALBUTEROL 2.5 MG/3 ML NEB (ADULT) INH ×3 (11:37→17:54)
--- NOTE | 2020-10-02 14:08 | P.PNOB_ITS ---
Subjective - OB Subjective Patient comments: no complaints [place] baby status: doing well and nursing well feeding status: exclusively breast feeding Narrative: Post day 1 induction for HELLP syndrome with spontaneous vaginal delivery Date Patient Seen: 10/02/20 Time Patient Seen: 14:09 Interval history: day 1. Spontaneous vaginal delivery after induction for HELLP syndrome. Patient denies headaches, scotomata, epigastric pain. She denies any significant bleeding. She is urinating and ambulating well. She is breast-feeding without difficulty. Exam Vital Signs (past 8 hours): Blood pressures between 161/ 90-and 119/72 pulse of 80, temperature 97.3? 10/02/20 08:53 10/02/20 11:35 Pulse Rate 69 71 Respiratory Rate 16 Blood Pressure 125/79 Pulse Oximetry 100 Oxygen Delivery Method Room Air Narrative Exam Narrative: Abdomen is soft, nontender. Uterus is firm, at U, nontender. Mild lochia. Extremities without edema and nontender. Objective Labs Result Diagrams: 10/02/20 07:40 10/02/20 07:40 Labs: Laboratory Results - last 24 hr 10/01/20 10/01/20 10/01/20 16:56 16:56 16:56 WBC 11.4 H RBC 4.25 Hgb 10.3 L Hct 32.7 L MCV 77.0 L MCH 24.3 L MCHC 31.6 RDW 14.7 Plt Count 133 L Neut % (Auto) Lymph % (Auto) [place] % (Auto) Eos % (Auto) Baso % (Auto) Neut # (Auto) Lymph # (Auto) [place] # (Auto) Eos # (Auto) Baso # (Auto) PT 11.4 INR 1.0 APTT 26 L BUN Creatinine Estimated GFR BUN/Creatinine Ratio Uric Acid Total Bilirubin 0.3 Conjugated Bilirubin 0.0 Unconjugated Bilirubin 0.2 AST 209 H ALT 65 H Alkaline Phosphatase 142 H Total Protein 6.2 L Albumin 3.1 L Globulin 3.1 Albumin/Globulin Ratio 1.0 10/01/20 10/01/20 10/02/20 21:08 21:08 07:40 WBC 17.5 H D 21.0 H RBC 4.21 3.75 L Hgb 10.2 L 9.1 L Hct 32.3 L 29.0 L MCV 76.7 L 77.2 L MCH 24.2 L 24.3 L MCHC 31.6 31.5 RDW 14.6 14.6 Plt Count 137 L 127 L Neut % (Auto) 85.6 H 81.0 H Lymph % (Auto) 8.0 L 11.7 L [place] % (Auto) 6.3 7.2 Eos % (Auto) 0.0 L 0.0 L Baso % (Auto) 0.1 0.1 Neut # (Auto) 35460 H 44056 H Lymph # (Auto) 1400 2500 [place] # (Auto) 1100 H 1500 H Eos # (Auto) 0 0 Baso # (Auto) 0 0 PT INR APTT BUN < 2 L Creatinine 0.41 L Estimated GFR > 60.0 BUN/Creatinine Ratio 4.9 L Uric Acid 4.0 Total Bilirubin Conjugated Bilirubin Unconjugated Bilirubin AST 179 H ALT Alkaline Phosphatase Total Protein Albumin Globulin Albumin/Globulin Ratio 10/02/20 07:40 WBC RBC Hgb Hct MCV MCH MCHC RDW Plt Count Neut % (Auto) Lymph % (Auto) [place] % (Auto) Eos % (Auto) Baso % (Auto) Neut # (Auto) Lymph # (Auto) [place] # (Auto) Eos # (Auto) Baso # (Auto) PT INR APTT BUN < 2 L Creatinine 0.41 L Estimated GFR > 60.0 BUN/Creatinine Ratio 4.9 L Uric Acid 3.9 Total Bilirubin Conjugated Bilirubin Unconjugated Bilirubin AST 179 H ALT Alkaline Phosphatase Total Protein Albumin Globulin Albumin/Globulin Ratio Assessment & Plan Assessment and Plan (1) induced hypertension: Status: Acute (2) Vaginal delivery: Status: Acute Plan day: 1 plan OB: routine care Comments: Patient with no symptoms of worsening preeclampsia. Blood pressures are improving. Labs are stable but we will repeat them in the morning. Precautions reviewed with the patient. Time Spent With Patient Time: Total time spent is greater than 50% in coordination of care (as documented) at patient's floor/unit and/or counseling patient: Time with patient: less than 15 minutes
[2020-10-02] MEDS: BUDESONIDE 0.5 MG/2 ML NEB INH (18:01)
[2020-10-03] MEDS: ACETAMINOPHEN 325 MG TABLET 650 MG PO ×3 (04:51→18:10)
[2020-10-03] MEDS: IBUPROFEN 600 MG TABLET PO ×3 (04:51→18:09)
[2020-10-03 07:45] LABS: Add Manual Diff / Slide Review NO; Basophils Absolute Auto 0 /uL (0-100); Basophils Percent Auto 0.1 % (0-2); Eosinophils Absolute Auto 0 /uL (0-450); Eosinophils Percent Auto 0.2 % (2-4); Hematocrit 28.4 % (36-46); Hemoglobin 9.3 g/dL (12.0-16.0); Lymphocytes Absolute Auto 3400 /uL (1100-4500); Lymphocytes Percent Auto 17.1 % (25-40); Mean Corpuscular HGB Conc 32.6 % (30-36); Mean Corpuscular Hemoglobin 24.8 PG (26-34); Mean Corpuscular Volume 76.2 fL (80-100); Monocytes Absolute Auto 1700 /uL (0-900); Monocytes Percent Auto 8.4 % (3-14); Neutrophils Absolute Auto 14700 /uL (1500-7000); Neutrophils Percent Auto 74.2 % (50-75); Platelet Count 146 X10^3/uL (150-400); Red Blood Cell Count 3.73 X10^6/uL (4.0-5.2); Red Cell Distribution Width 14.6 % (11.6-14.8); White Blood Cell Count 19.8 X10^3/uL (4.5-11.0)
[2020-10-03 07:48] LABS: Alanine Aminotransferase 96 IU/L (<35); Albumin 2.6 g/dL (3.5-5.0); Alkaline Phosphatase 99 U/L (38-126); Aspartate Aminotransferase 285 IU/L (14-36); Bilirubin Total 0.1 mg/dL (0.2-1.3); Bilirubin Unconjugated 0.1 mg/dL (0.0-1.1); Globulin 2.6 g/dL (1.7-4.1); HEMOLYSIS < 15 (0-50); Total Protein 5.2 g/dL (6.3-8.2)
[2020-10-03] MEDS: PRENATAL VIT,CALC/IRON/FOLIC 1 TABLET 1 TAB PO (08:49)
[2020-10-03 08:50] VITALS: BP 142/84; PULSE 58
[2020-10-03] MEDS: LABETALOL 100 MG TABLET 200 MG PO ×2 (08:50→21:03)
[2020-10-03] MEDS: DOCUSATE 100 MG CAPSULE PO (08:50)
[2020-10-03] MEDS: ALBUTEROL 2.5 MG/3 ML NEB (ADULT) INH ×2 (09:20→20:15)
[2020-10-03] MEDS: BUDESONIDE 0.5 MG/2 ML NEB INH ×2 (09:20→20:15)
[2020-10-03 09:28] VITALS: PULSE 75; RESP 16; O2SAT 98
--- NOTE | 2020-10-03 18:45 | PM.OBPN.1 ---
Subjective - OB Subjective Patient comments: no complaints [place] baby status: doing well and nursing well feeding status: exclusively breast feeding Date Patient Seen: 10/03/20 Time Patient Seen: 18:47 Interval history: Patient is a 25-year-old 3 para 2 day # 2 status post spontaneous vaginal delivery after cervical ripening/induction of labor due to HELLP syndrome at 35-,5/7 weeks gestation. Baby is well. Baby is under the lights for jaundice. Exam Vital Signs (past 8 hours): Oxygen Delivery Method Room Air Narrative Exam Narrative: Generally: Patient is sitting up in chair, nursing , no acute distress Fundus: Firm at U -2 Objective Labs Result Diagrams: 10/03/20 07:16 10/02/20 07:40 Labs: Laboratory Results - last 24 hr 10/03/20 10/03/20 07:16 07:16 WBC 19.8 H RBC 3.73 L Hgb 9.3 L Hct 28.4 L MCV 76.2 L MCH 24.8 L MCHC 32.6 RDW 14.6 Plt Count 146 L Neut % (Auto) 74.2 Lymph % (Auto) 17.1 L [place] % (Auto) 8.4 Eos % (Auto) 0.2 L Baso % (Auto) 0.1 Neut # (Auto) 67782 H Lymph # (Auto) 3400 [place] # (Auto) 1700 H Eos # (Auto) 0 Baso # (Auto) 0 Total Bilirubin 0.1 L Conjugated Bilirubin 0.0 Unconjugated Bilirubin 0.1 AST 285 H ALT 96 H Alkaline Phosphatase 99 Total Protein 5.2 L Albumin 2.6 L Globulin 2.6 Albumin/Globulin Ratio 1.0 Assessment & Plan Assessment and Plan (1) induced hypertension: Status: Acute (2) Vaginal delivery: Status: Acute Plan day: 2 plan OB: other (Repeat PIH labs this evening) Time Spent With Patient Time: Total time spent is greater than 50% in coordination of care (as documented) at patient's floor/unit and/or counseling patient: Time with patient: 15-24 minutes
[2020-10-03 19:50] LABS: Add Manual Diff / Slide Review NO; Basophils Absolute Auto 100 /uL (0-100); Basophils Percent Auto 0.5 % (0-2); Eosinophils Absolute Auto 100 /uL (0-450); Eosinophils Percent Auto 0.5 % (2-4); Hematocrit 32.4 % (36-46); Hemoglobin 10.2 g/dL (12.0-16.0); Lymphocytes Absolute Auto 3600 /uL (1100-4500); Lymphocytes Percent Auto 19.7 % (25-40); Mean Corpuscular HGB Conc 31.5 % (30-36); Mean Corpuscular Hemoglobin 24.5 PG (26-34); Mean Corpuscular Volume 77.9 fL (80-100); Monocytes Absolute Auto 1400 /uL (0-900); Monocytes Percent Auto 7.7 % (3-14); Neutrophils Absolute Auto 13000 /uL (1500-7000); Neutrophils Percent Auto 71.6 % (50-75); Platelet Count 182 X10^3/uL (150-400); Red Blood Cell Count 4.16 X10^6/uL (4.0-5.2); Red Cell Distribution Width 14.9 % (11.6-14.8); White Blood Cell Count 18.1 X10^3/uL (4.5-11.0)
[2020-10-03 20:05] LABS: Aspartate Aminotransferase 346 IU/L (14-36); BUN Creatinine Ratio 10.7 (6-22); Blood Urea Nitrogen 6 mg/dL (7-17); Estimated Glomerular Filt Rate > 60.0 mL/min (>60); Uric Acid 4.3 mg/dL (2.5-6.2)
[2020-10-03 20:15] VITALS: PULSE 63; RESP 15; O2SAT 98
[2020-10-03 20:22] VITALS: PULSE 68; RESP 15; O2SAT 99
[2020-10-03 21:03] VITALS: BP 146/90; PULSE 74
[2020-10-03] MEDS: FUROSEMIDE 20 MG/2 ML VIAL IV (22:07)
[2020-10-03] MEDS: DEXAMETHASONE 4 MG/ML VIAL 15 MG IV (22:21)
[2020-10-04 06:56] LABS: Add Manual Diff / Slide Review NO; Basophils Absolute Auto 0 /uL (0-100); Basophils Percent Auto 0.1 % (0-2); Eosinophils Absolute Auto 0 /uL (0-450); Hematocrit 31.6 % (36-46); Hemoglobin 10.1 g/dL (12.0-16.0); Lymphocytes Absolute Auto 2200 /uL (1100-4500); Lymphocytes Percent Auto 12.6 % (25-40); Mean Corpuscular HGB Conc 31.9 % (30-36); Mean Corpuscular Hemoglobin 24.4 PG (26-34); Mean Corpuscular Volume 76.4 fL (80-100); Monocytes Absolute Auto 900 /uL (0-900); Monocytes Percent Auto 4.9 % (3-14); Neutrophils Absolute Auto 14500 /uL (1500-7000); Neutrophils Percent Auto 82.4 % (50-75); Platelet Count 182 X10^3/uL (150-400); Red Blood Cell Count 4.14 X10^6/uL (4.0-5.2); Red Cell Distribution Width 14.6 % (11.6-14.8); White Blood Cell Count 17.7 X10^3/uL (4.5-11.0)
[2020-10-04 07:05] LABS: Aspartate Aminotransferase 316 IU/L (14-36); BUN Creatinine Ratio 15.9 (6-22); Blood Urea Nitrogen 7 mg/dL (7-17); Estimated Glomerular Filt Rate > 60.0 mL/min (>60); Uric Acid 4.6 mg/dL (2.5-6.2)
[2020-10-04 07:11] LABS: BUN Creatinine Ratio 16.7 (6-22); Blood Urea Nitrogen 7 mg/dL (7-17); Calcium 9.3 mg/dL (8.4-10.2); Carbon Dioxide 23 mmol/L (22-32); Chloride 107 mmol/L (98-107); Estimated Glomerular Filt Rate > 60.0 mL/min (>60); Glucose 102 mg/dL (70-100); HEMOLYSIS < 15 (0-50); Sodium 137 mmol/L (137-145)
[2020-10-04] MEDS: LEVOTHYROXINE 25 MCG TABLET PO (07:23)
[2020-10-04 07:31] LABS: Potassium 2.7 mmol/L (3.4-5.1)
[2020-10-04] MEDS: POTASSIUM CHLORIDE 20 MEQ TAB 40 MEQ PO ×2 (08:21→18:02)
[2020-10-04] MEDS: POTASSIUM CHLORIDE IN WATER 10 MEQ/100 ML PIGGYBACK 50 MEQ IV ×2 (08:21→11:00)
[2020-10-04] MEDS: LABETALOL 100 MG TABLET 200 MG PO ×2 (08:21→22:47)
[2020-10-04] MEDS: DOCUSATE 100 MG CAPSULE PO (08:21)
[2020-10-04] MEDS: PRENATAL VIT,CALC/IRON/FOLIC 1 TABLET 1 TAB PO (08:21)
[2020-10-04 08:43] VITALS: PULSE 62; RESP 16; O2SAT 100
[2020-10-04] MEDS: ALBUTEROL 2.5 MG/3 ML NEB (ADULT) INH (08:43)
[2020-10-04 08:47] VITALS: PULSE 62; RESP 16; O2SAT 100
[2020-10-04] MEDS: BUDESONIDE 0.5 MG/2 ML NEB INH (08:47)
[2020-10-04] MEDS: DEXAMETHASONE 4 MG/ML VIAL 15 MG IV (10:25)
[2020-10-04] MEDS: IBUPROFEN 600 MG TABLET PO ×2 (12:45→20:08)
[2020-10-04] MEDS: ACETAMINOPHEN 325 MG TABLET 650 MG PO ×2 (12:45→20:08)
[2020-10-04] MEDS: HYDRALAZINE 20 MG/ML VIAL 5 MG IV (12:54)
[2020-10-04] MEDS: LACTATED RINGERS 1,000 ML 100 ML IV (13:07)
[2020-10-04] MEDS: HYDROMORPHONE 1 MG INJ IV (13:07)
[2020-10-04] MEDS: MAGNESIUM SULFATE 4 GM/100 ML PIGGYBACK IV (13:08)
[2020-10-04] MEDS: HYDRALAZINE 20 MG/ML VIAL (13:16)
[2020-10-04] MEDS: NIFEdipine 10 MG CAPSULE PO (13:17)
[2020-10-04] MEDS: MAGNESIUM SULFATE 20 GM/500 ML IV.SOLN IV ×2 (13:46→23:27)
[2020-10-04 14:36] LABS: Add Manual Diff / Slide Review NO; Basophils Absolute Auto 100 /uL (0-100); Basophils Percent Auto 0.4 % (0-2); Eosinophils Absolute Auto 0 /uL (0-450); Hematocrit 33.8 % (36-46); Hemoglobin 10.7 g/dL (12.0-16.0); Lymphocytes Absolute Auto 2200 /uL (1100-4500); Mean Corpuscular HGB Conc 31.6 % (30-36); Mean Corpuscular Hemoglobin 24.3 PG (26-34); Mean Corpuscular Volume 76.9 fL (80-100); Monocytes Absolute Auto 700 /uL (0-900); Neutrophils Absolute Auto 15500 /uL (1500-7000); Neutrophils Percent Auto 83.6 % (50-75); Platelet Count 203 X10^3/uL (150-400); Red Blood Cell Count 4.39 X10^6/uL (4.0-5.2); Red Cell Distribution Width 14.9 % (11.6-14.8); White Blood Cell Count 18.6 X10^3/uL (4.5-11.0)
[2020-10-04 14:44] LABS: Fibrinogen 278 mg/dL (211-428)
[2020-10-04 14:45] LABS: Prothrombin Time 10.7 SECONDS (10.1-12.7)
[2020-10-04 14:47] LABS: PTT Partial Thromboplastin Tim 23 SECONDS (26.4-36.2)
[2020-10-04 14:49] LABS: Alanine Aminotransferase 145 IU/L (<35); Albumin 3.3 g/dL (3.5-5.0); Albumin Globulin Ratio 1.1 (1.0-2.8); Alkaline Phosphatase 129 U/L (38-126); Aspartate Aminotransferase 294 IU/L (14-36); Bilirubin Total 0.3 mg/dL (0.2-1.3); Bilirubin Unconjugated 0.2 mg/dL (0.0-1.1); Blood Urea Nitrogen 6 mg/dL (7-17); Calcium 9.1 mg/dL (8.4-10.2); Carbon Dioxide 23 mmol/L (22-32); Chloride 109 mmol/L (98-107); Estimated Glomerular Filt Rate > 60.0 mL/min (>60); Globulin 3.1 g/dL (1.7-4.1); Glucose 119 mg/dL (70-100); HEMOLYSIS < 15 (0-50); Sodium 138 mmol/L (137-145); Total Protein 6.4 g/dL (6.3-8.2)
[2020-10-04 14:50] LABS: Potassium 2.6 mmol/L (3.4-5.1)
[2020-10-04] MEDS: POTASSIUM CHLORIDE IN WATER 10 MEQ/100 ML PIGGYBACK 100 MEQ IV ×5 (17:00→23:31)
--- NOTE | 2020-10-04 17:23 | PM.OBPN.1 ---
Subjective - OB Subjective Patient comments: other [place] baby status: doing well and nursing well feeding status: breast and bottle feeding Narrative: Patient is a 25-year-old 3 para 2 day # 3 status post spontaneous vaginal delivery after cervical ripening and induction of labor due to HELLP syndrome. Her course was going well until today when she had acute onset of an occipital headache rating 10/10. She was found to have elevated blood pressure in the 190s over 110s. She received IV hydralazine 5 mg slow IV push x2. She received nifedipine 10 mg oral x1. Blood pressure came down into the 130s to 140s over 80s to 90s. She also was found to have a low potassium this morning and has been receiving potassium chloride. A repeat potassium was still low. Patient was started on magnesium sulfate 4 g load and 2 grams/hour. Patient was given IV Lasix last evening due to significant swelling of the lower extremities. She is feeling much better. The headache is down to a 1 to 2/10 in pain. Her blood pressure has been stable in the 130s to 140s over 80s to 90s. Date Patient Seen: 10/04/20 Time Patient Seen: 17:27 Exam Vital Signs (past 8 hours): Oxygen Delivery Method Room Air Narrative Exam Narrative: Generally: Patient lying in a dark room, no acute distress Lungs: Clear to auscultation bilaterally Cardiovascular: Regular rate and rhythm Fundus: Firm at U -2 Extremities: Negative Homans, 1+ DTR, no clonus, trace edema Objective Labs Result Diagrams: 10/04/20 14:27 10/04/20 14:27 Labs: Laboratory Results - last 24 hr 10/03/20 10/03/20 10/04/20 19:38 19:38 05:00 WBC 18.1 H 17.7 H RBC 4.16 4.14 Hgb 10.2 L 10.1 L Hct 32.4 L 31.6 L MCV 77.9 L 76.4 L MCH 24.5 L 24.4 L MCHC 31.5 31.9 RDW 14.9 H 14.6 Plt Count 182 182 Neut % (Auto) 71.6 82.4 H Lymph % (Auto) 19.7 L 12.6 L [place] % (Auto) 7.7 4.9 Eos % (Auto) 0.5 L 0.0 L Baso % (Auto) 0.5 0.1 Neut # (Auto) 31954 H 80525 H Lymph # (Auto) 3600 2200 [place] # (Auto) 1400 H 900 Eos # (Auto) 100 0 Baso # (Auto) 100 0 PT INR APTT Fibrinogen Sodium Potassium Chloride Carbon Dioxide BUN 6 L Creatinine 0.56 Estimated GFR > 60.0 BUN/Creatinine Ratio 10.7 Glucose Uric Acid 4.3 Calcium Total Bilirubin Conjugated Bilirubin Unconjugated Bilirubin AST 346 H ALT Alkaline Phosphatase Total Protein Albumin Globulin Albumin/Globulin Ratio 10/04/20 10/04/20 10/04/20 05:00 05:00 14:27 WBC RBC Hgb Hct MCV MCH MCHC RDW Plt Count Neut % (Auto) Lymph % (Auto) [place] % (Auto) Eos % (Auto) Baso % (Auto) Neut # (Auto) Lymph # (Auto) [place] # (Auto) Eos # (Auto) Baso # (Auto) PT 10.7 INR 1.0 APTT Fibrinogen Sodium 137 Potassium 2.7 L* Chloride 107 Carbon Dioxide 23 BUN 7 7 Creatinine 0.44 L 0.42 L Estimated GFR > 60.0 > 60.0 BUN/Creatinine Ratio 15.9 16.7 Glucose 102 H Uric Acid 4.6 Calcium 9.3 Total Bilirubin Conjugated Bilirubin Unconjugated Bilirubin AST 316 H ALT Alkaline Phosphatase Total Protein Albumin Globulin Albumin/Globulin Ratio 10/04/20 10/04/20 10/04/20 14:27 14:27 14:27 WBC 18.6 H RBC 4.39 Hgb 10.7 L Hct 33.8 L MCV 76.9 L MCH 24.3 L MCHC 31.6 RDW 14.9 H Plt Count 203 Neut % (Auto) 83.6 H Lymph % (Auto) 12.0 L [place] % (Auto) 4.0 Eos % (Auto) 0.0 L Baso % (Auto) 0.4 Neut # (Auto) 39650 H Lymph # (Auto) 2200 [place] # (Auto) 700 Eos # (Auto) 0 Baso # (Auto) 100 PT INR APTT 23 L Fibrinogen Sodium 138 Potassium 2.6 L* Chloride 109 H Carbon Dioxide 23 BUN 6 L Creatinine 0.40 L Estimated GFR > 60.0 BUN/Creatinine Ratio 15.0 Glucose 119 H Uric Acid Calcium 9.1 Total Bilirubin 0.3 Conjugated Bilirubin 0.0 Unconjugated Bilirubin 0.2 AST 294 H ALT 145 H Alkaline Phosphatase 129 H Total Protein 6.4 Albumin 3.3 L Globulin 3.1 Albumin/Globulin Ratio 1.1 10/04/20 14:27 WBC RBC Hgb Hct MCV MCH MCHC RDW Plt Count Neut % (Auto) Lymph % (Auto) [place] % (Auto) Eos % (Auto) Baso % (Auto) Neut # (Auto) Lymph # (Auto) [place] # (Auto) Eos # (Auto) Baso # (Auto) PT INR APTT Fibrinogen 278 Sodium Potassium Chloride Carbon Dioxide BUN Creatinine Estimated GFR BUN/Creatinine Ratio Glucose Uric Acid Calcium Total Bilirubin Conjugated Bilirubin Unconjugated Bilirubin AST ALT Alkaline Phosphatase Total Protein Albumin Globulin Albumin/Globulin Ratio Assessment & Plan Assessment and Plan (1) induced hypertension: Status: Acute (2) Vaginal delivery: Status: Acute (3) HELLP syndrome: Status: Acute (4) Severe preeclampsia: Status: Acute Assessment and plan: Assessment: 25-year-old 3 para 2 day # 3 status post spontaneous vaginal delivery after cervical ripening and induction of labor due to HELLP syndrome Now with severe preeclampsia and low potassium Plan: Continue magnesium sulfate at 2 grams/hour Continue to replace potassium Check magnesium level q.6 hours Seizure precautions Calcium gluconate available Repeat labs every 6 hours Plan Comments: See above Plan Time Spent With Patient Time: Total time spent is greater than 50% in coordination of care (as documented) at patient's floor/unit and/or counseling patient: Time with patient: 25 - 35 minutes
[2020-10-04 21:57] LABS: Add Manual Diff / Slide Review NO; Basophils Absolute Auto 200 /uL (0-100); Basophils Percent Auto 0.7 % (0-2); Eosinophils Absolute Auto 100 /uL (0-450); Eosinophils Percent Auto 0.3 % (2-4); Hematocrit 32.6 % (36-46); Hemoglobin 10.4 g/dL (12.0-16.0); Lymphocytes Absolute Auto 2700 /uL (1100-4500); Lymphocytes Percent Auto 11.3 % (25-40); Mean Corpuscular HGB Conc 31.8 % (30-36); Mean Corpuscular Hemoglobin 24.5 PG (26-34); Mean Corpuscular Volume 76.9 fL (80-100); Monocytes Absolute Auto 2200 /uL (0-900); Monocytes Percent Auto 9.2 % (3-14); Neutrophils Absolute Auto 18600 /uL (1500-7000); Neutrophils Percent Auto 78.5 % (50-75); Platelet Count 190 X10^3/uL (150-400); Red Blood Cell Count 4.25 X10^6/uL (4.0-5.2); Red Cell Distribution Width 15.3 % (11.6-14.8); White Blood Cell Count 23.7 X10^3/uL (4.5-11.0)
[2020-10-04 22:05] LABS: Alanine Aminotransferase 127 IU/L (<35); Albumin 3.2 g/dL (3.5-5.0); Albumin Globulin Ratio 1.1 (1.0-2.8); Alkaline Phosphatase 143 U/L (38-126); Aspartate Aminotransferase 216 IU/L (14-36); BUN Creatinine Ratio 18.2 (6-22); Bilirubin Total 0.2 mg/dL (0.2-1.3); Bilirubin Unconjugated 0.1 mg/dL (0.0-1.1); Blood Urea Nitrogen 8 mg/dL (7-17); Calcium 7.7 mg/dL (8.4-10.2); Carbon Dioxide 23 mmol/L (22-32); Chloride 106 mmol/L (98-107); Estimated Glomerular Filt Rate > 60.0 mL/min (>60); Globulin 2.9 g/dL (1.7-4.1); Glucose 117 mg/dL (70-100); HEMOLYSIS < 15 (0-50); Magnesium 4.9 mg/dL (1.6-2.3); Potassium 2.8 mmol/L (3.4-5.1); Sodium 136 mmol/L (137-145); Total Protein 6.1 g/dL (6.3-8.2)
[2020-10-04 22:47] VITALS: BP 141/90; PULSE 82
[2020-10-05] MEDS: POTASSIUM CHLORIDE 20 MEQ TAB 40 MEQ PO (00:04)
[2020-10-05] MEDS: POTASSIUM CHLORIDE IN WATER 10 MEQ/100 ML PIGGYBACK 100 MEQ IV ×7 (01:17→18:10)
[2020-10-05] MEDS: IBUPROFEN 600 MG TABLET PO ×3 (02:14→20:53)
[2020-10-05] MEDS: ACETAMINOPHEN 325 MG TABLET 650 MG PO ×3 (02:14→20:54)
[2020-10-05 07:53] LABS: Add Manual Diff / Slide Review NO; Basophils Absolute Auto 0 /uL (0-100); Basophils Percent Auto 0.1 % (0-2); Eosinophils Absolute Auto 0 /uL (0-450); Eosinophils Percent Auto 0.2 % (2-4); Hematocrit 31.1 % (36-46); Hemoglobin 9.8 g/dL (12.0-16.0); Lymphocytes Absolute Auto 3900 /uL (1100-4500); Lymphocytes Percent Auto 21.7 % (25-40); Mean Corpuscular HGB Conc 31.5 % (30-36); Mean Corpuscular Hemoglobin 24.3 PG (26-34); Mean Corpuscular Volume 77.1 fL (80-100); Monocytes Absolute Auto 1700 /uL (0-900); Monocytes Percent Auto 9.3 % (3-14); Neutrophils Absolute Auto 12300 /uL (1500-7000); Neutrophils Percent Auto 68.7 % (50-75); Platelet Count 206 X10^3/uL (150-400); Red Blood Cell Count 4.03 X10^6/uL (4.0-5.2); White Blood Cell Count 17.9 X10^3/uL (4.5-11.0)
[2020-10-05 08:00] LABS: Alanine Aminotransferase 126 IU/L (<35); Albumin Globulin Ratio 1.1 (1.0-2.8); Alkaline Phosphatase 115 U/L (38-126); Aspartate Aminotransferase 174 IU/L (14-36); BUN Creatinine Ratio 14.9 (6-22); Bilirubin Total 0.1 mg/dL (0.2-1.3); Bilirubin Unconjugated 0.1 mg/dL (0.0-1.1); Blood Urea Nitrogen 7 mg/dL (7-17); Carbon Dioxide 22 mmol/L (22-32); Chloride 109 mmol/L (98-107); Estimated Glomerular Filt Rate > 60.0 mL/min (>60); Globulin 2.7 g/dL (1.7-4.1); Glucose 93 mg/dL (70-100); HEMOLYSIS < 15 (0-50); Potassium 2.8 mmol/L (3.4-5.1); Sodium 136 mmol/L (137-145); Total Protein 5.7 g/dL (6.3-8.2)
[2020-10-05 08:06] LABS: Magnesium 6.1 mg/dL (1.6-2.3)
[2020-10-05] MEDS: LABETALOL 100 MG TABLET 200 MG PO ×2 (08:19→20:29)
[2020-10-05] MEDS: DOCUSATE 100 MG CAPSULE PO (08:20)
[2020-10-05] MEDS: PRENATAL VIT,CALC/IRON/FOLIC 1 TABLET 1 TAB PO (08:20)
[2020-10-05] MEDS: MAGNESIUM SULFATE 20 GM/500 ML IV.SOLN IV (09:23)
[2020-10-05] MEDS: CALCIUM GLUCONATE 4.65 MEQ in SODIUM CHLORIDE 0.9% 50 ML 180 ML IV (12:00)
[2020-10-05 20:22] LABS: BUN Creatinine Ratio 21.9 (6-22); Blood Urea Nitrogen 14 mg/dL (7-17); Calcium 8.1 mg/dL (8.4-10.2); Carbon Dioxide 20 mmol/L (22-32); Chloride 110 mmol/L (98-107); Estimated Glomerular Filt Rate > 60.0 mL/min (>60); Glucose 88 mg/dL (70-100); HEMOLYSIS < 15 (0-50); Potassium 3.6 mmol/L (3.4-5.1); Sodium 136 mmol/L (137-145)
[2020-10-05 20:23] LABS: Alanine Aminotransferase 118 IU/L (<35); Albumin 3.1 g/dL (3.5-5.0); Albumin Globulin Ratio 1.1 (1.0-2.8); Alkaline Phosphatase 116 U/L (38-126); Aspartate Aminotransferase 142 IU/L (14-36); Bilirubin Total 0.1 mg/dL (0.2-1.3); Bilirubin Unconjugated 0.1 mg/dL (0.0-1.1); Globulin 2.7 g/dL (1.7-4.1); HEMOLYSIS < 15 (0-50); Total Protein 5.8 g/dL (6.3-8.2)
[2020-10-05 20:29] VITALS: BP 163/102; PULSE 117
[2020-10-05] MEDS: HYDRALAZINE 20 MG/ML VIAL 5 MG IV (21:33)
[2020-10-06] VITALS (8 sets, daily range): BP systolic 139–171; BP diastolic 79–103; PULSE 70–119
[2020-10-06] MEDS: HYDRALAZINE 20 MG/ML VIAL 5 MG IV ×2 (00:33→09:08)
[2020-10-06] MEDS: LABETALOL 100 MG TABLET PO ×2 (00:52→14:55)
[2020-10-06] MEDS: ACETAMINOPHEN 325 MG TABLET 650 MG PO ×3 (03:36→19:59)
[2020-10-06] MEDS: IBUPROFEN 600 MG TABLET PO ×3 (03:37→19:58)
[2020-10-06] MEDS: LEVOTHYROXINE 25 MCG TABLET PO (06:48)
[2020-10-06] MEDS: PRENATAL VIT,CALC/IRON/FOLIC 1 TABLET 1 TAB PO (08:07)
[2020-10-06] MEDS: LABETALOL 100 MG TABLET 200 MG PO ×2 (08:07→21:01)
[2020-10-06] MEDS: DOCUSATE 100 MG CAPSULE PO (08:08)
[2020-10-06] MEDS: NIFEdipine 10 MG CAPSULE PO (08:33)
[2020-10-06 09:02] LABS: BUN Creatinine Ratio 23.9 (6-22); Blood Urea Nitrogen 11 mg/dL (7-17); Calcium 8.3 mg/dL (8.4-10.2); Carbon Dioxide 22 mmol/L (22-32); Chloride 111 mmol/L (98-107); Estimated Glomerular Filt Rate > 60.0 mL/min (>60); Glucose 81 mg/dL (70-100); HEMOLYSIS < 15 (0-50); Potassium 3.2 mmol/L (3.4-5.1); Sodium 138 mmol/L (137-145)
[2020-10-06 09:11] LABS: Alanine Aminotransferase 112 IU/L (<35); Albumin 2.9 g/dL (3.5-5.0); Alkaline Phosphatase 99 U/L (38-126); Aspartate Aminotransferase 125 IU/L (14-36); Bilirubin Total 0.2 mg/dL (0.2-1.3); Bilirubin Unconjugated 0.1 mg/dL (0.0-1.1); Globulin 2.8 g/dL (1.7-4.1); HEMOLYSIS < 15 (0-50); Total Protein 5.7 g/dL (6.3-8.2)
[2020-10-06] MEDS: NIFEdipine 30 MG TAB ER PO (09:21)
[2020-10-06] MEDS: POTASSIUM CHLORIDE 20 MEQ TAB PO (13:12)
[2020-10-07] MEDS: ACETAMINOPHEN 325 MG TABLET 650 MG PO ×2 (01:40→08:41)
[2020-10-07] MEDS: IBUPROFEN 600 MG TABLET PO ×2 (01:41→08:41)
[2020-10-07] MEDS: LEVOTHYROXINE 25 MCG TABLET PO (05:29)
[2020-10-07 06:29] LABS: Alanine Aminotransferase 99 IU/L (<35); Albumin Globulin Ratio 1.1 (1.0-2.8); Alkaline Phosphatase 114 U/L (38-126); Aspartate Aminotransferase 102 IU/L (14-36); Bilirubin Total 0.1 mg/dL (0.2-1.3); Bilirubin Unconjugated 0.1 mg/dL (0.0-1.1); Blood Urea Nitrogen 13 mg/dL (7-17); Calcium 8.8 mg/dL (8.4-10.2); Carbon Dioxide 22 mmol/L (22-32); Chloride 110 mmol/L (98-107); Estimated Glomerular Filt Rate > 60.0 mL/min (>60); Globulin 2.8 g/dL (1.7-4.1); Glucose 88 mg/dL (70-100); HEMOLYSIS < 15 (0-50); Potassium 3.2 mmol/L (3.4-5.1); Sodium 136 mmol/L (137-145); Total Protein 5.8 g/dL (6.3-8.2)
[2020-10-07] MEDS: PRENATAL VIT,CALC/IRON/FOLIC 1 TABLET 1 TAB PO (08:41)
[2020-10-07 08:42] VITALS: BP 147/99
[2020-10-07] MEDS: POTASSIUM CHLORIDE 20 MEQ TAB PO (08:42)
[2020-10-07] MEDS: LABETALOL 100 MG TABLET 200 MG PO ×2 (08:42→12:53)
[2020-10-07] MEDS: NIFEdipine 30 MG TAB ER PO (09:24)
[2020-10-07 09:38] VITALS: BP 147/99; PULSE 114; RESP 16; TEMP 36.8
[2020-10-07 12:53] VITALS: BP 155/99
--- NOTE | 2020-10-07 19:13 | PM.OBPN.1 ---
Subjective - OB Subjective Patient comments: other (Severe headache) baby status: nursing well feeding status: breast and bottle feeding Date Patient Seen: 10/05/20 Time Patient Seen: 11:45 Interval history: Patient is a 25-year-old 3 para 2 day # 4 status post spontaneous vaginal delivery after cervical ripening and induction of labor due to HELLP syndrome. Patient was doing well until this morning when she had acute onset of a severe occipital headache. Blood pressure was found to be 190s over 110's. She received 2 doses labetalol 5 mg slow IV push 20 minutes apart. Blood pressure came down to normal range. She was taking labetalol 100 mg twice a day. She was increased to 200 mg twice a day. She received 20 mg of IV Lasix overnight due to significant swelling of the lower extremities. Exam Vital Signs (past 8 hours): - 10/07/20 12:53 Blood Pressure 155/99 H Oxygen Delivery Method Room Air Narrative Exam Narrative: Generally: Patient reclining in bed in a dark room in moderate distress secondary to the pain from the headache. Lungs: Clear to auscultation bilaterally Cardiovascular: Regular rate and rhythm Fundal height: U -2 Extremities: 1+ edema Objective Labs Result Diagrams: 10/05/20 07:03 10/07/20 05:58 Labs: Laboratory Results - last 24 hr 10/07/20 05:58 Sodium 136 L Potassium 3.2 L Chloride 110 H Carbon Dioxide 22 BUN 13 Creatinine 0.52 Estimated GFR > 60.0 BUN/Creatinine Ratio 25.0 H Glucose 88 Calcium 8.8 Total Bilirubin 0.1 L Conjugated Bilirubin 0.0 Unconjugated Bilirubin 0.1 AST 102 H ALT 99 H Alkaline Phosphatase 114 Total Protein 5.8 L Albumin 3.0 L Globulin 2.8 Albumin/Globulin Ratio 1.1 Assessment & Plan Assessment and Plan (1) induced hypertension: Status: Acute (2) Vaginal delivery: Status: Acute (3) HELLP syndrome: Status: Acute (4) Severe preeclampsia: Status: Acute Assessment and plan: Assessment: This 25-year-old 3 para 2 with severe preeclampsia on top of HELLP syndrome Potassium still low Acute onset of occipital headache Plan: Increase labetalol to 200 mg twice a day Replace potassium Seizure precautions Magnesium off later today IV hydralazine as needed Time Spent With Patient Time: Total time spent is greater than 50% in coordination of care (as documented) at patient's floor/unit and/or counseling patient: Time with patient: 25 - 35 minutes
--- NOTE | 2020-10-07 19:18 | PM.OBPN.1 ---
Subjective - OB Subjective Patient comments: no complaints Gibson baby status: doing well and nursing well feeding status: breast and bottle feeding Date Patient Seen: 10/06/20 Time Patient Seen: 11:45 Interval history: Patient is a 25-year-old 3 para 2 day # 5 status post spontaneous vaginal delivery after cervical ripening and induction of labor. Yesterday had acute onset of headache with significantly elevated blood pressure. She required 3 doses of IV labetalol in the last 24 hours. No return of headache. Potassium has been low and is being replaced Exam Vital Signs (past 8 hours): - 10/07/20 12:53 Blood Pressure 155/99 H Oxygen Delivery Method Room Air Narrative Exam Narrative: Generally: Patient is sitting up in bed, no acute distress Lungs: Clear to auscultation bilaterally Cardiovascular: Regular rate and Fundus: Firm at U -3 Extremities: Trace edema, 1+ DTRs Objective Labs Result Diagrams: 10/05/20 07:03 10/07/20 05:58 Labs: Laboratory Results - last 24 hr 10/07/20 05:58 Sodium 136 L Potassium 3.2 L Chloride 110 H Carbon Dioxide 22 BUN 13 Creatinine 0.52 Estimated GFR > 60.0 BUN/Creatinine Ratio 25.0 H Glucose 88 Calcium 8.8 Total Bilirubin 0.1 L Conjugated Bilirubin 0.0 Unconjugated Bilirubin 0.1 AST 102 H ALT 99 H Alkaline Phosphatase 114 Total Protein 5.8 L Albumin 3.0 L Globulin 2.8 Albumin/Globulin Ratio 1.1 Assessment & Plan Assessment and Plan (1) induced hypertension: Status: Acute (2) Vaginal delivery: Status: Acute (3) HELLP syndrome: Status: Acute (4) Severe preeclampsia: Status: Acute Assessment and plan: Assessment: 25-year-old 3 para 2 day # 5 status post spontaneous vaginal delivery due to HELLP syndrome course complicated by severe preeclampsia requiring magnesium sulfate Labile hypertension Plan: Add nifedipine 30 XL Will consider discharge tomorrow if no IV hydralazine needed in the next 24 hours Continue to replace potassium Plan day: 5 Time Spent With Patient Time: Total time spent is greater than 50% in coordination of care (as documented) at patient's floor/unit and/or counseling patient: Time with patient: 15-24 minutes
--- NOTE | 2020-10-07 19:21 | PM.OBDS.1 ---
Discharge Providers Provider Date of admission: 09/30/20 13:18 Discharge Date: 10/07/20 Primary care physician: TOYA Gallardo Consults: 10/02/20 20:20 Consult to Mandarin Chinese Teacher Routine Comment: Discharge provider: Daisy Mason MD Summary Hospital Course Date Patient Seen: 10/07/20 Time Patient Seen: 07:50 Diagnoses: Intrauterine at 35 and 5/7 weeks gestation HELLP syndrome Severe preeclampsia Cervical ripening with Cervidil Pitocin induction of labor Spontaneous vaginal delivery Magnesium sulfate seizure prophylaxis Low serum potassium Potassium replacement Labile hypertension Hospital Course: Patient is a 25-year-old 3 para 2 who presented on September 30, 2020 with elevated blood pressure and abnormal liver function tests and low platelets. She was admitted to the hospital and cervical ripening with Cervidil occurred on September 30, 2020. On the morning of October 01, 2020 Pitocin induction of labor was started. Patient received an epidural for pain management. Artificial rupture membranes was performed. She progressed to complete dilation and had a spontaneous vaginal delivery without complication. Her course was complicated by labile hypertension and diagnosis of severe preeclampsia requiring magnesium sulfate seizure prophylaxis. She also required significant medication to control blood pressure. She had low potassium which was replaced over 3 days. Her liver function tests peaked on day # 2 and then started to returned to normal. Her platelets began rising on day # 2. She is discharged home on day # 6. Her blood pressure is well controlled. She will follow-up in 4 days for a blood pressure check Peripartum Data Infant Delivery Method: Natural Vaginal Laceration Description: Perineal - 1st Degree and Vaginal - 1st Degree Episiotomy description: None Procedures: Cervidil cervical ripening Pitocin induction of labor Epidural analgesia Artificial rupture of membranes Spontaneous vaginal delivery First-degree perineal/vaginal laceration repair Magnesium sulfate seizure prophylaxis Replacement of potassium Management of labile hypertension complications: other (Severe preeclampsia, low potassium, labile hypertension) [place] 1: Gender: Female Disposition of : home Discharge Diagnosis (1) induced hypertension: Status: Acute (2) Vaginal delivery: Status: Acute (3) HELLP syndrome: Status: Acute (4) Severe preeclampsia: Status: Acute Status at Discharge Cognitive/behavioral status at discharge: oriented Functional status at discharge: independent ambulation Overall status at discharge: patient is progressing back to baseline Time Spent with Patient Time attestation: Total time spent providing and/or coordinating discharge services: Time spent: Greater than 30 minutes Objective Labs Result Diagrams: 10/05/20 07:03 10/07/20 05:58 Labs: Laboratory Results - last 24 hr 10/07/20 05:58 Sodium 136 L Potassium 3.2 L Chloride 110 H Carbon Dioxide 22 BUN 13 Creatinine 0.52 Estimated GFR > 60.0 BUN/Creatinine Ratio 25.0 H Glucose 88 Calcium 8.8 Total Bilirubin 0.1 L Conjugated Bilirubin 0.0 Unconjugated Bilirubin 0.1 AST 102 H ALT 99 H Alkaline Phosphatase 114 Total Protein 5.8 L Albumin 3.0 L Globulin 2.8 Albumin/Globulin Ratio 1.1 Exam Vital Signs (past 8 hours): - 10/07/20 12:53 Blood Pressure 155/99 H Oxygen Delivery Method Room Air Narrative Exam Narrative: Generally: Patient is sitting up in chair, no acute distress Lungs: Clear to auscultation bilaterally Cardiovascular: Regular rate and rhythm Fundus: Firm at U -3 Extremities: 1+ DTRs, negative Homans, 1+ edema, no clonus Discharge Plan Discharge Plan Patient Disposition: Home Provider Discharge Comment: Call with fever, chills, or bleeding vaginally more than a pad an hour Call with headache, blurred vision, or spots before your eyes Discharge orders & Medications Prescriptions: Continued nifedipine 30 mg tablet extended release 30 mg PO DAILY Qty: 30 RF: 3 albuterol sulfate 90 mcg/actuation HFA aerosol inhaler 2 puff INHALATION Q4-6H PRN (Reason: shortness of breath or wheezing) Qty: 18 RF: 2 fluticasone propion-salmeterol [Advair Diskus] 250-50 mcg/dose blister with device 1 inh INHALATION BID Qty: 60 RF: 3 levothyroxine 25 mcg tablet 25 mcg PO DAILY Qty: 90 RF: 2 ipratropium-albuterol 0.5 mg-3 mg(2.5 mg base)/3 mL solution for nebulization 3 ml INHALATION Q4-6H PRN (Reason: shortness of breath or wheezing) Qty: 15 RF: 0 Discontinued ondansetron 4 mg tablet,disintegrating 4 mg PO Q6H Qty: 20 RF: 2 pyridoxine (vitamin B6) 50 mg tablet 25 mg PO TID PRN (Reason: nausea vomiting) Qty: 60 RF: 0 metoclopramide HCl [Reglan] 10 mg tablet 10 mg PO TID PRN (Reason: nausea and vomiting) Qty: 60 RF: 3 labetalol 100 mg tablet 100 mg PO DAILY Qty: 30 RF: 6 labetalol 200 mg tablet 200 mg PO BID Qty: 60 RF: 0 Unisom (doxylamine) 25 mg tablet 25 mg PO BEDTIME PRN (Reason: Nasal Congestion) RF: 0 No Action labetalol 200 mg tablet 400 mg PO BID Qty: 150 RF: 3 Follow up/Referrals: Daisy Mason MD [Physician] - 3-5 Days (October 10, , at 1:45pm with Dr Mason for blood pressure check , November 14, 2020 at 2:15PM. Check in at 2:00PM) Diet/Activity/Treatments Diet: Regular Activity: Activities of daily living only Skin/Wound/Dressing Care Report to your healthcare provider any signs of infection, such as:: chills, fever, increased pain and unusual drainage Visit Report/Discharge Packet Instructions: Pre-eclampsia, DI for Labor and Delivery, Vaginal , High-Potassium Diet Stand Alone Forms: Discharge: Care Discharge Data Primary Care Provider: Tami Delacruz
== END 2020-10-07 13:02 | disposition home or self-care (01) | DRG 807 ==
PROVIDERS: Anesthesiology; Specialist; Admitting Provider Obstetrics & Gynecology; PCP Nurse Practitioner Family; Referring Provider Obstetrics & Gynecology; Visit Provider Obstetrics & Gynecology
DX: O14.24 HELLP syndrome, complicating childbirth (principal); Z37.0 Single live birth; Z3A.35 35 weeks gestation of pregnancy; O70.0 First degree perineal laceration during delivery; O69.81X0 Labor and delivery complicated by cord around neck, without compression, not applicable or unspecified; O13.4 Gestational [pregnancy-induced] hypertension without significant proteinuria, complicating childbirth; Z20.822 Contact with and (suspected) exposure to COVID-19
CPT/HCPCS: 01967; 36415; 59050; 59200; 59400; 80048; 80076; 82570; 83735; 84156; 84450; 84550; 85025; 85027; 85384; 85610; 85730; 86850; 86900; 86901; 87635; 94640; C9803; G0379; J0360; J0610; J0702; J1100; J1170; J1940; J2405; J2590; J3475; J7613

== ENCOUNTER → 2020-10-10 14:34 | Outpatient (CLI) | payer OTHER, MEDICAID, SELFPAY ==
[2020-10-10 15:31] LABS: Add Manual Diff / Slide Review NO; Basophils Absolute Auto 100 /uL (0-100); Basophils Percent Auto 1.1 % (0-2); Eosinophils Absolute Auto 400 /uL (0-450); Eosinophils Percent Auto 4.8 % (2-4); Hematocrit 35.2 % (36-46); Lymphocytes Absolute Auto 3600 /uL (1100-4500); Lymphocytes Percent Auto 42.4 % (25-40); Mean Corpuscular HGB Conc 31.3 % (30-36); Mean Corpuscular Hemoglobin 24.3 PG (26-34); Mean Corpuscular Volume 77.6 fL (80-100); Monocytes Absolute Auto 900 /uL (0-900); Monocytes Percent Auto 10.4 % (3-14); Neutrophils Absolute Auto 3500 /uL (1500-7000); Neutrophils Percent Auto 41.3 % (50-75); Platelet Count 305 X10^3/uL (150-400); Red Blood Cell Count 4.53 X10^6/uL (4.0-5.2); White Blood Cell Count 8.6 X10^3/uL (4.5-11.0)
[2020-10-10 16:28] LABS: Alanine Aminotransferase 76 IU/L (<35); Albumin 3.6 g/dL (3.5-5.0); Albumin Globulin Ratio 1.2 (1.0-2.8); Alkaline Phosphatase 122 U/L (38-126); Aspartate Aminotransferase 40 IU/L (14-36); BUN Creatinine Ratio 20.8 (6-22); Bilirubin Total 0.2 mg/dL (0.2-1.3); Bilirubin Unconjugated 0.1 mg/dL (0.0-1.1); Blood Urea Nitrogen 11 mg/dL (7-17); Calcium 9.9 mg/dL (8.4-10.2); Carbon Dioxide 21 mmol/L (22-32); Chloride 109 mmol/L (98-107); Estimated Glomerular Filt Rate > 60.0 mL/min (>60); Globulin 2.9 g/dL (1.7-4.1); Glucose 104 mg/dL (70-100); HEMOLYSIS < 15 (0-50); Potassium 3.9 mmol/L (3.4-5.1); Sodium 139 mmol/L (137-145); Total Protein 6.5 g/dL (6.3-8.2)
== END ==
PROVIDERS: PCP Nurse Practitioner Family; Referring Provider Obstetrics & Gynecology; Visit Provider Obstetrics & Gynecology
DX: O14.10 Severe pre-eclampsia, unspecified trimester (principal); O14.20 HELLP syndrome (HELLP), unspecified trimester
CPT/HCPCS: 36415; 80048; 80076; 85025